=== PATIENT | male | born 1965 | race Caucasian/White ===

== ENCOUNTER 2017-09-29 18:49 | Emergency (ER) | payer OTHER, MEDICARE ==
[2017-09-29 19:03] VITALS: BP 130/80
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
[2017-09-29] MEDS ORDERED: KETOROLAC TROMETHAMINE INJ/PF 30 MG/1 ML SDV IM ONE (20:15)
--- NOTE | 2017-09-30 07:31 | EKG REPORT ---
SEVERITY:- BORDERLINE ECG - SINUS RHYTHM IVCD : Confirmed by: Sigifredo Ramirez MD 30-Sep-2017 07:30:56
== END 2017-09-29 20:42 | disposition home or self-care (01) ==
LOC: ER 18:49
DX: M54.2 Cervicalgia (principal); M62.838 Other muscle spasm; R07.89 Other chest pain; M25.50 Pain in unspecified joint; R20.2 Paresthesia of skin; V58.0XXA Driver of pick-up truck or van injured in noncollision transport accident in nontraffic accident, initial encounter
CPT/HCPCS: 93005; 99284; 96372; 71046; 70450; 72125; 93010; L0120; J1885

== ENCOUNTER 2017-10-23 19:35 | Emergency (ER) | payer OTHER, MEDICARE ==
--- NOTE | 2017-10-23 20:32 | ER Document Report ---
HPI - HPI Pain Level: 5 Notes: Patient is a 52-year-old male with a history of hypertension, diabetes, RSD (to his knees, R>L ankle), chronic back pain who presents to the ED complaining of right lower leg/ankle swelling and bruising without any injury or precipitating event that showed up this morning. Patient states that the only activity he did yesterday was get measured for prosthetics. Patient states that he is usually immobile and laid on his couch all day long yesterday without any exercise or ambulation. Patient states that this is his normal daily routine. He is followed at the [place] [facility]. He does not have any other smoking, hormone use, recent surgery/trauma, previous DVT/PE. Patient states that he also does have some calf discomfort associated. No other concerns or complaints at this time. He is eating and drinking without difficulties. He is urinating normally and having normal bowel movements. Denies any headache, fever, head injury, neck pain, changes in vision/speech/mentation/hearing, URI, sore throat , chest pain, palpitations, syncope, cough, shortness of breath, wheeze, dyspnea , abdominal pain, nausea/vomiting/diarrhea, urinary retention, dysuria, hematuria, loss of control of bowel or bladder, numbness/tingling, saddle anesthesia, muscle paralysis/weakness, or rash. - ROS Systems Reviewed and Negative: Yes All other systems reviewed and negative Past Medical History - Social History Smoking Status: Never Smoker Family History: Reviewed & Not Pertinent Renal/ Medical History: Denies: Hx Peritoneal Dialysis Musculoskeltal Medical History: Reports Hx Arthritis Past Surgical History: Reports: Hx Orthopedic Surgery - back, neck, shoulder, hip Vertical Provider Document - CONSTITUTIONAL Agree With Documented VS: Yes Notes: PHYSICAL EXAMINATION: GENERAL: Well-appearing, well-nourished and in no acute distress. LUNGS: Breath sounds clear to auscultation bilaterally and equal. No wheezes rales or rhonchi. HEART: Regular rate and rhythm without murmurs, rubs, gallops. Musculoskeletal: Rt ankle: + ecchymosis and mild swelling noted medial lower leg/ankle. + surgical scar noted medially where is his primary RSD pain is located. LROM to passive/active. Strength 5+/5. N/V intact distal. + tenderness to the medial ankle, normal for him per pt. No other bony tenderness of the foot. Achilles intact. Calves are symmetric otherwise. No warmth. + mild tenderness. Extremities: No cyanosis, clubbing, or edema b/l. Peripheral pulses 2+. Capillary refill less than 3 seconds. NEUROLOGICAL: Normal speech, limping gait with SPC. Normal sensory, motor exams PSYCH: Normal mood, normal affect. SKIN: Warm, Dry, normal turgor, no rashes or lesions noted. - INFECTION CONTROL TRAVEL OUTSIDE OF THE [place] IN LAST 30 DAYS: No Course - Re-evaluation Re-evalutation: 10/23/17 20:32 We will obtain a venous doppler. 10/23/17 23:18 Patient is an afebrile, well-hydrated, 52-year-old male who presents to the ED with right ankle pain/swelling unspecified. Vitals are acceptable. PE is otherwise unremarkable for any neurovascular compromise, obvious tendon/ ligament rupture, obvious fracture/dislocation, septic joint. X-ray was unremarkable for any acute pathology. Venous Doppler was obtained and unofficially negative at this time. Patient is able to ambulate and weight- bear. He has no significant tachycardia, tachypnea, or hypoxia. He is nontoxic -appearing. Patient does have complex regional pain syndrome to that ankle as well. No other labs or imaging warranted at this time based on H&P. Recommend conservative measures for symptoms. Recheck with your PCM in 3-5 days. Consider consult with orthopedics. Return to the ED with any worsening/ concerning symptoms otherwise as reviewed discharge. Patient is in agreement. - Vital Signs Vital signs: Temp Pulse Resp BP Pulse Ox 98.4 F 78 121/80 96 10/23/17 20:13 10/23/17 20:13 10/23/17 20:13 10/23/17 20:13 Discharge - Discharge Clinical Impression: Right ankle pain Qualifiers: Chronicity: acute Qualified Code(s): M25.571 - Pain in right ankle and joints of right foot Condition: Stable Disposition: HOME, SELF-CARE Additional Instructions: Rest, Ice, Compression, Elevation Use your cane to aide in ambulation Tylenol/ibuprofen as needed Light stretches daily Strength exercises as able Moist heat and massage may help F/u with your PCP in 3-5 days for a recheck Consider consult(s) with Orthopedics/physical therapy for ongoing/worsening symptoms Return to the ED with any worsening symptoms and/or development of fever, headache, chest pain, palpitations, syncope, shortness of breath, trouble breathing, abdominal pain, n/v/d, muscle weakness/paralysis, numbness/tingling, swelling, redness, or other worsening symptoms that are concerning to you. Prescriptions: Diclofenac Sodium [Voltaren] 4 gm TP QID PRN #100 gel..gm. PRN Reason: Referrals: ENZO BETHEA PA [Primary Care Provider] - Follow up in 3-5 days [facility] [Provider Group] - Follow up as needed
[2017-10-23] MEDS ORDERED: MORPHINE SULFATE IR 15 MG TABLET PO ONE (20:35)
--- NOTE | 2017-10-23 23:12 | RADIOLOGY REPORT (SQ) ---
EXAM DESCRIPTION: ANKLE RIGHT COMPLETE COMPLETED DATE/TIME: 10/23/2017 11:00 pm REASON FOR STUDY: pain/swelling COMPARISON: None. NUMBER OF VIEWS: Three views. TECHNIQUE: AP, lateral, and oblique radiographic images acquired of the right ankle. LIMITATIONS: None. FINDINGS: MINERALIZATION: Normal. BONES: No acute fracture or dislocation. No worrisome bone lesions. 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 SOFT TISSUES: No soft tissue swelling. No foreign body. OTHER: No other significant finding. IMPRESSION: DEGENERATIVE CHANGE. NO RADIOGRAPHIC EVIDENCE OF ACUTE INJURY. TECHNICAL DOCUMENTATION: JOB ID: [id number] [employer]- All Rights Reserved Reading location - IP/workstation name: [email or web address]
[2017-10-24 00:40] VITALS: BP 119/75
--- NOTE | 2017-10-24 13:10 | XCELERA REPORT ---
[address] [address] Lower Extremity Venous Evaluation Name: DU VELASQUEZ JR Age: 52 yrs Gender: Male : 1965 Patient Status: Emergency Patient Location: ER Study Date: 10/23/2017 09:51 PM Procedure: Color flow and duplex imaging of the veins of the right lower extremity as well as the left Common Femoral vein. Reason For Study: Rt LE swelling, ecchymosis, pain, no trauma Ordering Physician: CARI PIZARRO PA-C Performed By: Michell Roman Right Sided Venous Evaluation Normal vessel filling wall to wall, compression and augmentation as well as Colour flow down to the infrageniculate veins. Left Sided Venous Evaluation The left common femoral vein is fully compressible. Spontaneous and phasic flow is present in the left common femoral vein. Interpretation Summary No duplex evidence of DVT or obstruction in the right lower extremity nor in the left Common Femoral vein. : CARI PIZARRO PA-C > Shashank Gotti
== END 2017-10-24 00:39 | disposition home or self-care (01) ==
LOC: ER 19:35
DX: M25.571 Pain in right ankle and joints of right foot (principal); I10 Essential (primary) hypertension; E11.9 Type 2 diabetes mellitus without complications; G89.29 Other chronic pain
CPT/HCPCS: 93971; 99284

== ENCOUNTER 2019-01-30 15:06 | Emergency (ER) | payer OTHER, MEDICARE ==
--- NOTE | 2019-01-30 16:03 | ER Document Report ---
ED Medical Screen (RME) - General Chief Complaint: Rib Pain Stated Complaint: RIB PAIN Time Seen by Provider: 01/30/19 15:54 Primary Care Provider: ENZO BETHEA PA [Primary Care Provider] - Follow up as needed Mode of Arrival: Wheelchair Information source: Patient Notes: 54-year-old male presented to ED for complaint of right rib pain since Thursday. He states he was doing PT doing pulling and stretching exercises when he had pain in his right ribs and difficulty breathing. He states he did not go to the doctor or to the hospital or anyone to get it checked out. He states he thought he could just work it out himself. He went back to the PT on Thursday and was told that he needed to go to the emergency room. He states he did not go on Thursday but he did come in today. He is alert oriented respirations regular and unlabored speaking in full sentences walks with a even steady gait. He states he has had neck and back surgery multiple other joint problems as well as arthritis. He had multiple orthopedic surgeries. He has been on pain management since 1991 for his low back and is now on for his neck as well. He states he has had a appendectomy. He has throat problems due to his neck surgery. He states he does not smoke drink or use any drugs. He states he does not take anything like ibuprofen or naproxen or aspirin. I have greeted and performed a rapid initial assessment of this patient. A comprehensive ED assessment and evaluation of the patient, analysis of test results and completion of medical decision making process will be conducted by an additional ED providers. TRAVEL OUTSIDE OF THE [place] IN LAST 30 DAYS: No - Related Data Allergies/Adverse Reactions: Penicillins Allergy (Verified 09/29/17 18:56) tomato Allergy (Verified 09/29/17 18:56) Past Medical History - Social History Chew tobacco use (# tins/day): No Endocrine Medical History: Reports: Hx Diabetes Mellitus Type 2 Renal/ Medical History: Denies: Hx Peritoneal Dialysis Musculoskeltal Medical History: Reports Hx Arthritis Past Surgical History: Reports: Hx Orthopedic Surgery - back, neck, shoulder, hip Physical Exam - Vital signs Vitals: Temp Pulse Resp BP Pulse Ox 98.0 F 74 16 137/88 H 98 01/30/19 15:31 01/30/19 15:31 01/30/19 15:31 01/30/19 15:31 01/30/19 15:31 Course - Vital Signs Vital signs: Temp Pulse Resp BP Pulse Ox 98.0 F 74 16 137/88 H 98 01/30/19 15:31 01/30/19 15:31 01/30/19 15:31 01/30/19 15:31 01/30/19 15:31 Doctor's Discharge - Discharge Referrals: ENZO BETHEA PA [Primary Care Provider] - Follow up as needed
--- NOTE | 2019-01-30 16:48 | RADIOLOGY REPORT (SQ) ---
EXAM DESCRIPTION: RIBS LEFT W/PA CHEST COMPLETED DATE/TIME: 01/30/2019 4:27 pm REASON FOR STUDY: pain in ribs since pt on Thursday pain management COMPARISON: Chest x-ray 09/29/2017. TECHNIQUE: Frontal view of the chest and additional views of the left ribs acquired. NUMBER OF VIEWS: Four view. LIMITATIONS: None. FINDINGS: FRONTAL CXR: No pneumothorax. No pleural effusion. No atelectasis or infiltrates. RIBS: No displaced left rib fractures. IMPRESSION: NO PNEUMOTHORAX. NO DISPLACED LEFT RIB FRACTURES. COMMENT: SITE OF TRAUMA/COMPLAINT MARKED/STAMP COMPLETED: NO. TECHNICAL DOCUMENTATION: JOB ID: [id number] 2010 [employer]- All Rights Reserved Reading location - IP/workstation name: [email or web address]
--- NOTE | 2019-01-30 17:41 | ER Document Report ---
HPI - HPI Time Seen by Provider: 01/30/19 15:54 Pain Level: 4 Context: Patient is a 54-year-old male with a history of bilateral arm tremors, chronic low back pain, chronic neck pain, and muscle weakness who presents to the emergency department with a chief complaint of left rib pain. Patient states that last Thursday he was at physical therapy when the therapist stretched his left arm upward and pushed on his ribs. Patient reports that at that time he felt discomfort in the left rib area. Patient reports that movement, deep breath and laying on the left side makes the pain worse. Patient states he did go to physical therapy on Thursday in which they used ice and the TENS machine. Patient reports that he tends machine did help with his pain. Patient does take morphine 30 mg every 12 hours as well as morphine 45 mg every 4 hours for pain. Patient was concerned about possible rib fracture. Patient denies coughing up blood. Patient reports he does go to physical therapy due to his neck surgery back in July which was a C3-C4 fusion. - EENT EENT: DENIES: Sore Throat, Ear Pain, Eye problems - NEURO Neurology: DENIES: Headache, Weakness, Vision blurred, Dizzinesss / Vertigo - CARDIOVASCULAR Cardiovascular: DENIES: Chest pain - RESPIRATORY Respiratory: DENIES: Trouble Breathing, Coughing - GASTROINTESTINAL Gastrointestinal: DENIES: Abdominal Pain, Black / Bloody Stools - URINARY Urinary: DENIES: Dysuria, Urgency, Frequency - REPRODUCTIVE Reproductive: DENIES: :, Postmenopausal, Abnormal bleeding / discharge - MUSCULOSKELETAL Musculoskeletal: REPORTS: Extremity pain - Left Rib Past Medical History - General Information source: Patient - Social History Smoking Status: Former Smoker Chew tobacco use (# tins/day): No Frequency of alcohol use: None Drug Abuse: None Lives with: Spouse/Significant other Family History: Reviewed & Not Pertinent Patient has suicidal ideation: No Patient has homicidal ideation: No - Past Medical History Cardiac Medical History: Reports: None Pulmonary Medical History: Reports: None EENT Medical History: Reports: None Neurological Medical History: Reports: None Endocrine Medical History: Reports: Hx Diabetes Mellitus Type 2 Renal/ Medical History: Reports: None. Denies: Hx Peritoneal Dialysis Malignancy Medical History: Reports None GI Medical History: Reports: None Musculoskeletal Medical History: Reports Hx Arthritis Skin Medical History: Reports None Psychiatric Medical History: Reports: None Traumatic Medical History: Reports: None Infectious Medical History: Reports: None Past Surgical History: Reports: Hx Orthopedic Surgery - back, neck, shoulder, hip Vertical Provider Document - CONSTITUTIONAL Agree With Documented VS: Yes Exam Limitations: No Limitations General Appearance: No Apparent Distress - INFECTION CONTROL TRAVEL OUTSIDE OF THE [place] IN LAST 30 DAYS: No - HEENT HEENT: Atraumatic, Normocephalic, PERRLA - NECK Neck: Normal Inspection - RESPIRATORY Respiratory: Breath Sounds Normal, No Respiratory Distress Notes: Patient has tenderness with palpation to the to the posterior and lateral lower ribs. There is no ecchymosis, erythema, or edema noted. There is no crepitus or subcutaneous emphysema. - CARDIOVASCULAR Cardiovascular: Regular Rate, Regular Rhythm - GI/ABDOMEN Gastrointestinal: Abdomen Soft, Abdomen Non-Tender - BACK Back: Normal Inspection Notes: There is no obvious ecchymosis, erythema, edema to the back. - NEURO Level of Consciousness: Awake, Alert, Appropriate - DERM Integumentary: Warm, Dry, No Rash Course - Re-evaluation Re-evalutation: 01/30/19 17:45 Upon evaluation patient no acute distress. Patient states he was concerned that he may have a broken rib. X-rays were negative for any acute abnormality or rib fractures. Will prescribe patient a muscle relaxer as he is already on chronic pain management. Patient in agreement with this plan. I did inform the patient to continue use his TENS machine at home and cool compresses as this does seem to help with his discomfort. - Vital Signs Vital signs: Temp Pulse Resp BP Pulse Ox 98.0 F 74 16 137/88 H 98 01/30/19 15:31 01/30/19 15:31 01/30/19 15:31 01/30/19 15:31 01/30/19 15:31 - Diagnostic Test Radiology reviewed: Reports reviewed Radiology results interpreted by me: 01/30/19 17:50 Ribs w/Chest X-Ray 01/30/19 16:00 IMPRESSION: NO PNEUMOTHORAX. NO DISPLACED LEFT RIB FRACTURES. Discharge - Discharge Clinical Impression: Rib pain on left side, Muscle strain Condition: Stable Disposition: HOME, SELF-CARE Additional Instructions: Today you are seen in the emergency department for left rib pain. Your x-ray was negative for any acute abnormality such as a rib fracture. Your symptoms are consistent with a muscle strain. Please continue to use your TENS machine at home as well as cool compresses as this does seem to help with your discomfort. I am prescribing you a muscle relaxer, this is to be used in combination with your morphine. Would also be helpful to start an anti- inflammatory. Please check your medication list at home as you may already be on an anti-inflammatory. Muscle Strain You have strained a muscle -- torn the fibers within the muscle. This often occurs with strenuous exertion, or during an injury that suddenly stretches the muscle. The seriousness of a strain varies. Some strains heal within days, others cause problems for months. X-rays cannot show a muscle strain. X-rays are taken only if symptoms suggest that a fracture could be present. The usual treatment of a muscle strain is rest and ice packs. Sometimes, a sling, splint, or crutches may be necessary to rest the muscle. The muscle can be used again once pain subsides. Severe strains require a special exercise and stretching program to prevent permanent stiffness and disability. Your doctor will advise you if this will be necessary. Call the doctor immediately if pain or swelling becomes severe, or if numbness or discoloration develop. Muscle Relaxers Muscle relaxing medications are usually prescribed for acute muscle spasm or injury to the neck and back. They are often combined with antiinflammatory pain medication for increased relief. You may stop the muscle relaxer when the pain and stiffness have improved. Start the medication again if spasms recur. Muscle relaxers may cause drowsiness, especially with the first dose. Do not operate machinery or drive while under the effects of the medication. Most muscle relaxers last up to 24 hours. Do not combine the medication with alcohol. Prescriptions: Methocarbamol [Robaxin 500 mg Tablet] 1,000 mg PO TID #15 tablet Referrals: ENZO BETHEA PA [Primary Care Provider] - Follow up as needed
[2019-01-30] MEDS ORDERED: METHOCARBAMOL 500 MG TABLET PO ONE (17:48)
[2019-01-30 18:05] VITALS: BP 117/81
== END 2019-01-30 18:05 | disposition home or self-care (01) ==
LOC: ER 15:06
DX: R07.81 Pleurodynia (principal); T14.8XXA Other injury of unspecified body region, initial encounter; X58.XXXA Exposure to other specified factors, initial encounter; G89.29 Other chronic pain; M54.5 Low back pain; Z98.1 Arthrodesis status
CPT/HCPCS: 99283

== ENCOUNTER 2019-02-20 02:57 | Emergency (ER) | payer OTHER, MEDICARE ==
[2019-02-20] MEDS ORDERED: AZITHROMYCIN 1 GM SUSP PACKET PO ONE (04:03)
[2019-02-20] MEDS ORDERED: CIPROFLOXACIN HCL 500 MG TABLET PO ONE (04:03)
[2019-02-20] MEDS ORDERED: DOXYCYCLINE HYCLATE 100 MG TABLET PO ONE (04:03)
[2019-02-20] MEDS ORDERED: HYDROCODONE/ACETAMINOPHEN 10-325 MG TABLET PO ONE (04:03)
[2019-02-20] MEDS ORDERED: FENTANYL CITRATE INJ/PF 100 MCG/2 ML AMPUL IM ONE (04:17)
[2019-02-20] MEDS ORDERED: GABAPENTIN 300 MG CAPSULE PO ONE (04:17)
--- NOTE | 2019-02-20 04:20 | ER Document Report ---
ED ENT - General Chief Complaint: Ear Pain Stated Complaint: EARACHE Time Seen by Provider: 02/20/19 03:54 Primary Care Provider: ENZO BETHEA PA [Primary Care Provider] - Follow up as needed Mode of Arrival: Ambulatory Information source: Patient Notes: Chief complaint: Left facial pain History of complain:( obtained from----patient) 54 years old male presents today with left facial pain starting from the 10th left temporomandibular joint radiating anteriorly over the frontal maxillary and jaw region. Going on for the last few days. Sharp pain shooting pain comes on on and off. Unexpectedly. He is on morphine in spite of that the pain comes on. Onset: As above Duration: Last few days Severity: Moderate to severe Quality: Sharp stabbing pain Context: Possible trigeminal neuralgia Exacerbating factor and relieving factors: None REVIEW OF SYSTEMS: CONSTITUTIONAL : Denies fever, chills, or sweats. Denies recent illness. EENT: Denies eye, ear, throat, or mouth pain or symptoms. Denies nasal or sinus congestion or discharge. Denies throat, tongue, or mouth swelling or difficulty swallowing. CARDIOVASCULAR: Denies chest pain. Denies palpitations or racing or irregular heart beat. Denies ankle edema. RESPIRATORY: Denies cough, cold, or chest congestion. Denies shortness of breath, difficulty breathing, or wheezing. GASTROINTESTINAL: Denies distention. Denies nausea, vomiting, or diarrhea. Denies blood in vomitus, stools, or per rectum. Denies black, tarry stools. Denies constipation. GENITOURINARY: Denies difficulty urinating, painful urination, burning, frequency, blood in urine, or discharge. FEMALE GENITOURINARY: Denies vaginal bleeding, heavy or abnormal periods, irregular periods. Denies vaginal discharge or odor. MUSCULOSKELETAL: Denies back or neck pain or stiffness. Denies joint pain or swelling. SKIN: Denies rash, lesions or sores. HEMATOLOGIC : Denies easy bruising or bleeding. LYMPHATIC: Denies swollen, enlarged glands. NEUROLOGICAL: Denies confusion or altered mental status. Denies passing out or loss of consciousness. Denies dizziness or lightheadedness. Denies headache. Denies weakness or paralysis or loss of use of either side. Denies problems with gait or speech. Denies sensory loss, numbness, or tingling. Denies seizures. PSYCHIATRIC: Denies anxiety or stress. Denies depression, suicidal ideation, or homicidal ideation. ALL OTHER SYSTEMS REVIEWED AND NEGATIVE. PHYSICAL EXAMINATION: GENERAL: Well-appearing, well-nourished and in no acute distress. HEAD: Atraumatic, normocephalic. EYES: Pupils equal round and reactive to light, extraocular movements intact, conjunctiva are normal. ENT: Tenderness over the left frontal, maxillary, mandibular region noted. Nares patent, oropharynx clear without exudates. Moist mucous membranes. NECK: Normal range of motion, supple without lymphadenopathy LUNGS: Breath sounds clear to auscultation bilaterally and equal. No wheezes rales or rhonchi. HEART: Regular rate and rhythm without murmurs PSYCH: Normal mood, normal affect. SKIN: Warm, Dry, normal turgor, no rashes or lesions noted. Dictation was performed using [employer] voice recognition software TRAVEL OUTSIDE OF THE [place] IN LAST 30 DAYS: No - HPI Notes: Dictated - Related Data Allergies/Adverse Reactions: Penicillins Allergy (Verified 09/29/17 18:56) tomato Allergy (Verified 09/29/17 18:56) Past Medical History - Social History Smoking Status: Never Smoker Chew tobacco use (# tins/day): No Frequency of alcohol use: None Drug Abuse: None Lives with: Family Family History: Reviewed & Not Pertinent Patient has suicidal ideation: No Patient has homicidal ideation: No - Past Medical History Cardiac Medical History: Reports: Hx Hypercholesterolemia, Hx Hypertension Neurological Medical History: Reports: Hx Seizures Endocrine Medical History: Reports: Hx Diabetes Mellitus Type 2 Renal/ Medical History: Denies: Hx Peritoneal Dialysis Musculoskeletal Medical History: Reports Hx Arthritis Past Surgical History: Reports: Hx Orthopedic Surgery - back, neck, shoulder, hip Review of Systems - Review of Systems Notes: Dictated Physical Exam - Vital signs Vitals: Temp Pulse Resp BP Pulse Ox 98.2 F 89 16 154/93 H 97 02/20/19 03:12 02/20/19 03:02/20/19 03:02/20/19 03:02/20/19 03:12 - Notes Notes: Dictated Course - Vital Signs Vital signs: Temp Pulse Resp BP Pulse Ox 98.2 F 89 16 154/93 H 97 02/20/19 03:12 02/20/19 03:12 02/20/19 03:12 02/20/19 03:12 02/20/19 03:12 Discharge - Discharge Clinical Impression: Trigeminal neuralgia of left side of face Condition: Fair Disposition: HOME, SELF-CARE Instructions: Trigeminal Neuralgia ([facility]) Prescriptions: Gabapentin Enacarbil [Horizant] 300 mg PO TID #30 tab.er.24h Referrals: ENZO BETHEA PA [Primary Care Provider] - Follow up as needed
[2019-02-20 05:01] VITALS: BP 141/96
--- NOTE | 2019-02-20 10:23 | EKG REPORT ---
SEVERITY:- OTHERWISE NORMAL ECG - SINUS RHYTHM BORDERLINE LEFT AXIS DEVIATION : Confirmed by: Aicha Carey MD 20-Feb-2019 10:22:40
== END 2019-02-20 04:59 | disposition home or self-care (01) ==
LOC: ER 02:57
DX: G50.0 Trigeminal neuralgia (principal); R68.84 Jaw pain; I10 Essential (primary) hypertension; E11.9 Type 2 diabetes mellitus without complications
CPT/HCPCS: 93005; 99283; 96374; 93010; J3010

== ENCOUNTER 2020-02-06 09:44 | Inpatient (IN) | payer OTHER, MEDICARE ==
[2020-02-06] MEDS ORDERED: ONDANSETRON HCL INJ/PF 4 MG/2 ML SDV IV ONE (10:14)
[2020-02-06] MEDS ORDERED: NORMAL SALINE 1000 ML 1,000 ML IV ONE ×3 (10:14→12:47)
--- NOTE | 2020-02-06 10:25 | RADIOLOGY REPORT (SQ) ---
EXAM DESCRIPTION: CHEST SINGLE VIEW IMAGES COMPLETED DATE/TIME: 02/06/2020 10:14 am REASON FOR STUDY: bed1 sepsis alert COMPARISON: 09/29/2017 EXAM PARAMETERS: NUMBER OF VIEWS: One view. TECHNIQUE: Single frontal radiographic view of the chest acquired. RADIATION DOSE: NA LIMITATIONS: None. FINDINGS: LUNGS AND PLEURA: No focal consolidation, pleural effusion or pneumothorax. MEDIASTINUM AND HILAR STRUCTURES: No masses. Contour normal. HEART AND VASCULAR STRUCTURES: Heart normal in size. Normal vasculature. BONES: No acute findings. HARDWARE: None in the chest. Partially visualized cervical fusion hardware. OTHER: No other significant finding. IMPRESSION: No focal airspace disease or other evidence of acute intrathoracic process. TECHNICAL DOCUMENTATION: JOB ID: [id number] 2010 [employer]- All Rights Reserved Reading location - IP/workstation name: [email or web address]
[2020-02-06 10:27] LABS: INTERNATIONAL RATION (INR) 1.66; PROTHROMBIN TIME 19.7 SEC (11.4-15.4)
[2020-02-06 10:28] LABS: VENOUS BLOOD BASE EXCESS 0.5 mmol/L; VENOUS BLOOD HCO3 26.3 mmol/L (20-32); VENOUS BLOOD PH 7.37 (7.30-7.42)
[2020-02-06 10:31] LABS: ABSOLUTE LYMPHOCYTES (AUTO) 0.8 10^3/uL (0.5-4.7); ABSOLUTE MONOCYTES (AUTO) 0.8 10^3/uL (0.1-1.4); ABSOLUTE NEUT (AUTO) 3.9 10^3/uL (1.7-8.2); BASOPHILS % (AUTO) 0.2 % (0-2); HEMATOCRIT 34.8 % (37.9-51.0); HEMOGLOBIN 11.9 g/dL (13.5-17.0); LYMPHOCYTES % (AUTO) 14.1 % (13-45); MEAN CORPUSCULAR HEMOGLOBIN 28.7 pg (27.0-33.4); MEAN CORPUSCULAR HGB CONC 34.2 g/dL (32.0-36.0); MEAN CORPUSCULAR VOLUME 84 fl (80-97); MONOCYTES % (AUTO) 13.7 % (3-13); PLATELET COUNT 283 10^3/uL (150-450); RED BLOOD COUNT 4.15 10^6/uL (4.35-5.55); RED CELL DISTRIBUTION WIDTH 14.8 % (11.5-14.0); TOTAL CELLS COUNTED % (AUTO) 100 %; WHITE BLOOD COUNT 5.5 10^3/uL (4.0-10.5)
[2020-02-06 10:52] LABS: ALBUMIN 3.4 g/dL (3.5-5.0); ALKALINE PHOSPHATASE 61 U/L (38-126); ANION GAP 19 (5-19); ASPARTATE AMINO TRANSFERASE 117 U/L (17-59); BILIRUBIN,DIRECT 2.2 mg/dL (0.0-0.4); BILIRUBIN,TOTAL 3.2 mg/dL (0.2-1.3); BLOOD UREA NITROGEN 61 mg/dL (7-20); CALCIUM 8.9 mg/dL (8.4-10.2); CARBON DIOXIDE 26 mmol/L (22-30); CHLORIDE 90 mmol/L (98-107); GLUCOSE 151 mg/dL (75-110); POTASSIUM 3.8 mmol/L (3.6-5.0); TOTAL PROTEIN 5.8 g/dL (6.3-8.2)
--- NOTE | 2020-02-06 11:13 | RADIOLOGY REPORT (SQ) ---
EXAM DESCRIPTION: CT ABD/PELVIS NO ORAL OR IV IMAGES COMPLETED DATE/TIME: 02/06/2020 10:51 am REASON FOR STUDY: recent aurelia/pain/vomit COMPARISON: 01/06/2020 TECHNIQUE: CT scan of the abdomen and pelvis performed without intravenous or oral contrast. Images reviewed with lung, soft tissue, and bone windows. Reconstructed coronal and sagittal MPR images revi ewed. All images stored on PACS. All CT scanners at this facility use dose modulation, iterative reconstruction, and/or weight based d osing when appropriate to reduce radiation dose to as low as reasonably achievable (ALARA). [facility]: Dose Right [facility]: CareDose [facility]: Dose Right [facility]: Teradose 4D [facility]: [employer] RADIATION DOSE: CT Rad equipment meets quality standard of care and radiation dose reduction techniq ues were employed. CTDIvol: 16.6 mGy. DLP: 1040 mGy-cm.mGy. LIMITATIONS: None. FINDINGS: LOWER CHEST: Several calcified granulomas in the right lower lobe. Areas of linear basila r subsegmental atelectasis. No developing lesions. Distal esophagus mildly distended with fluid. NON-CONTRASTED LIVER, SPLEEN, ADRENALS: Evaluation limited by lack of IV contrast. No identified sign ificant masses. PANCREAS: No masses. No peripancreatic inflammatory changes. GALLBLADDER: Now surgically absent. Minimal fluid in the gallbladder fossa. RIGHT KIDNEY AND URETER: No solid masses. No significant calcification. No hydronephrosis or hydroure ter. LEFT KIDNEY AND URETER: No solid masses. No significant calcification. No hydronephrosis or hydrouret er. AORTA AND RETROPERITONEUM: No aneurysm. No retroperitoneal masses or adenopathy. BOWEL AND PERITONEAL CAVITY: The stomach is markedly distended with fluid. Duodenum and proximal jej unum also considerably distended. Difficult to define a discrete transition point but the mid and di stal small bowel look generally decompressed. Findings are consistent with at least partial small javier wel obstruction. Given the degree of gastric and proximal small bowel distention, this may be relati vely high-grade. Suspect obstruction point in the relatively proximal small bowel, left abdomen. Th ere is mild ascites with perihepatic fluid, trace pericolic gutter and pelvic fluid, relatively simpl e in appearance. Mild free air in the abdomen, presumably due to the recent surgery. APPENDIX: Not visualized. PELVIS, BLADDER, AND ABDOMINAL WALL:Trace free fluid. Otoole catheter decompresses the bladder. BONES: Osteopenia. Multilevel lumbar postoperative changes with instrumentation. OTHER: No other significant finding. IMPRESSION: 1. Patient is now postoperative, status post recent cholecystectomy. This likely explains minimal fr ee air in the abdomen and mild ascites. 2. There is considerable fluid distention of the distal esophagus, stomach and proximal small bowel h owever. Although ileus is in the differential, appearance is highly concerning for proximal true obs truction. TECHNICAL DOCUMENTATION: JOB ID: [id number] Quality ID # [id number]: Final reports with documentation of one or more dose reduction techniques (e.g., Au tomated exposure control, adjustment of the mA and/or kV according to patient size, use of iterative reconstruction technique) 2010 [email or web address]- All Rights Reserved Reading location - IP/workstation name: [email or web address]
[2020-02-06] MEDS ORDERED: NORMAL SALINE 250 ML IV PRN ×2 (11:36)
[2020-02-06 11:46] LABS: ABSOLUTE LYMPHOCYTES (AUTO) 1.1 10^3/uL (0.5-4.7); ABSOLUTE MONOCYTES (AUTO) 0.8 10^3/uL (0.1-1.4); BASOPHILS % (AUTO) 0.4 % (0-2); HEMATOCRIT 33.8 % (37.9-51.0); HEMOGLOBIN 11.7 g/dL (13.5-17.0); LYMPHOCYTES % (AUTO) 19.1 % (13-45); MEAN CORPUSCULAR HEMOGLOBIN 28.9 pg (27.0-33.4); MEAN CORPUSCULAR HGB CONC 34.7 g/dL (32.0-36.0); MEAN CORPUSCULAR VOLUME 83 fl (80-97); MONOCYTES % (AUTO) 12.8 % (3-13); PLATELET COUNT 267 10^3/uL (150-450); RED BLOOD COUNT 4.06 10^6/uL (4.35-5.55); RED CELL DISTRIBUTION WIDTH 14.9 % (11.5-14.0); SEGMENTED NEUTROPHILS % (AUTO) 67.7 % (42-78); TOTAL CELLS COUNTED % (AUTO) 100 %
[2020-02-06] MEDS ORDERED: LIDOCAINE 2% VISCOUS SOLN 15 ML UDCUP ONE (12:05)
[2020-02-06] MEDS ORDERED: METOCLOPRAMIDE HCL INJ/PF 10 MG/2 ML SDV IV ONE (12:05)
[2020-02-06] MEDS ORDERED: LIDOCAINE 2% VISCOUS SOLN 15 ML UDCUP PO ONE (12:05)
--- NOTE | 2020-02-06 12:10 | ER Document Report ---
ED General - General Chief Complaint: Abdominal Pain Stated Complaint: WEAKNESS Time Seen by Provider: 02/06/20 10:11 Primary Care Provider: GIANCARLO CLAUDIO MD [Primary Care Provider] - Follow up as needed Information source: Patient TRAVEL OUTSIDE OF THE [place] IN LAST 30 DAYS: No - HPI Notes: Patient presents complaint of severe abdominal pain. States that he had a cholecystectomy approximately 1 week ago at an outside facility. Since that time he has had progressive distention of his abdomen with increasing pain and vomiting. The pain is constant and severe. Radiates throughout his abdomen. Is worse with movement better with rest. He is also decreased appetite. No known fevers. He has had no problems with urine or stool. No chest pain or shortness of breath. - Related Data Allergies/Adverse Reactions: Penicillins Allergy (Verified 02/06/20 11:59) tomato Allergy (Verified 02/06/20 11:59) Past Medical History - General Information source: Patient - Social History Smoking Status: Current Every Day Smoker Frequency of alcohol use: None Drug Abuse: None Family History: Reviewed & Not Pertinent - Past Medical History Cardiac Medical History: Reports: Hx Hypercholesterolemia, Hx Hypertension Neurological Medical History: Reports: Hx Seizures Endocrine Medical History: Reports: Hx Diabetes Mellitus Type 2 Renal/ Medical History: Denies: Hx Peritoneal Dialysis Musculoskeletal Medical History: Reports Hx Arthritis Past Surgical History: Reports: Hx Orthopedic Surgery - back, neck, shoulder, hip Review of Systems - Review of Systems Constitutional: Malaise, Weakness Cardiovascular: denies: Chest pain, Palpitations Respiratory: denies: Cough, Short of breath -: Yes All other systems reviewed and negative Physical Exam - Vital signs Vitals: BP 109/68 02/06/20 09:46 Interpretation: Hypotensive, Tachycardic - General General appearance: Alert, Anxious In distress: Moderate - HEENT Head: Normocephalic, Atraumatic Eyes: Normal Pupils: PERRL - Respiratory Respiratory status: No respiratory distress Chest status: Nontender Breath sounds: Normal Chest palpation: Normal - Cardiovascular Rhythm: Tachycardia Heart sounds: Normal auscultation Murmur: No - Abdominal Inspection: Other - Healing incisions without signs of acute infection Distension: Distended Tenderness: Tender - Diffuse - Back Back: Normal, Nontender - Extremities General upper extremity: Normal inspection, Nontender, Normal color, Normal ROM, Normal temperature General lower extremity: Normal inspection, Nontender, Normal color, Normal ROM, Normal temperature. No: Sonia's sign - Neurological Neuro grossly intact: Yes Cognition: Normal Orientation: AAOx4 Jeanie Coma Scale Eye Opening: Spontaneous Jeanie Coma Scale Verbal: Oriented Jeanie Coma Scale Motor: Obeys Commands [place] Coma Scale Total: 15 Speech: Normal Motor strength normal: LUE, RUE, LLE, RLE Sensory: Normal - Psychological Associated symptoms: Normal affect, Normal mood - Skin Skin Temperature: Warm Skin Moisture: Dry Skin Color: Normal Course - Re-evaluation Re-evalutation: 02/06/20 12:10 Patient is approximately 1 week postop from a cholecystectomy. He presents with hypotension tachycardia and a severely tender distended abdomen. CT scan shows ileus versus true obstruction. Multiple attempts at an NG tube were unsuccessfu l but patient has vomited approximately 2 L of coffee-ground emesis. After 3 L patient was still hypotensive so there was concerns the patient may be anemic even though the initial CBC was normal. Repeat CBC however showed the patient to have persistent normal hemoglobin and hematocrit therefore the blood was not given. Patient does appear to be significantly fluid behind and is currently on liters 4 and 5. His urine output has been minimal for the last hour and a half. Patient's EKG has some nonspecific changes but he does not have any significant chest pain and it would seem unlikely that he be having cardiac ischemia at the same time as a significant intra-abdominal obstruction/ileus. Patient's blood pressure is better at this time heart rate has been trending down but is still tachycardic. O2 saturations have been good. - Vital Signs Vital signs: Temp Pulse Resp BP Pulse Ox 28 H 138/99 H 93 02/06/20 11:55 02/06/20 11:55 02/06/20 11:55 - Laboratory Result Diagrams: 02/06/20 11:30 02/06/20 09:55 Laboratory results interpreted by me: 02/06/20 02/06/20 02/06/20 09:55 09:55 09:55 RBC 4.15 L Hgb 11.9 L Hct 34.8 L RDW 14.8 H [place] % (Auto) 13.7 H PT 19.7 H Sodium 135.2 L Chloride 90 L BUN 61 H Creatinine 2.64 H Est GFR ( Amer) 30 L Est GFR (MDRD) Non-Af 25 L Glucose 151 H Lactic Acid Total Bilirubin 3.2 H Direct Bilirubin 2.2 H AST 117 H Total Protein 5.8 L Albumin 3.4 L Crossmatch 02/06/20 02/06/20 02/06/20 09:55 10:18 11:30 RBC 4.06 L Hgb 11.7 L Hct 33.8 L RDW 14.9 H [place] % (Auto) PT Sodium Chloride BUN Creatinine Est GFR ( Amer) Est GFR (MDRD) Non-Af Glucose Lactic Acid 6.4 H Total Bilirubin Direct Bilirubin AST Total Protein Albumin Crossmatch See Detail - Diagnostic Test Radiology reviewed: Image reviewed, Reports reviewed - EKG Interpretation by Me EKG shows normal: Sinus rhythm Rate: Tachycardia Rhythm: NSR - 153 When compared to previous EKG there are: Changes noted Critical Care Note - Critical Care Note Total time excluding time spent on procedures (mins): 80 Comments: Approximately 80 minutes of critical care time were spent managing this patient with hypotension, tachycardia, hypovolemic shock secondary to bowel obstruction from surgical complication. This time is spent in discussions multiple consultants. It is spent reviewing imaging and laboratory values. It was spent reviewing old records. It was spent during multiple reassessments. Discharge - Discharge Clinical Impression: Small bowel obstruction, Hypovolemic shock Condition: Critical Disposition: ADMITTED INPATIENT Admitting Provider: Hal (Mar[employer] Equipment Sales Engineer) Unit Admitted: ICU Referrals: GIANCARLO CLAUDIO MD [Primary Care Provider] - Follow up as needed
[2020-02-06 12:15] LABS: AMORPHOUS SEDIMENT,URINE TRACE /HPF; APPEARANCE,URINE TURBID; BILIRUBIN,URINE SMALL (NEGATIVE); COLOR,URINE AMBER; GLUCOSE, URINE NEGATIVE (NEGATIVE); KETONES,URINE TRACE mg/dL (NEGATIVE); PROTEIN,URINE >=500 mg/dL (NEGATIVE); URINE SPECIFIC GRAVITY 1.026
[2020-02-06] MEDS: METOCLOPRAMIDE HCL INJ/PF 10 MG/2 ML SDV ONE ×2 (12:26→12:51)
--- NOTE | 2020-02-06 12:29 | EKG REPORT ---
SEVERITY:- ABNORMAL ECG - SINUS TACHYCARDIA ATRIAL PREMATURE COMPLEXES BORDERLINE ST ELEVATION, INFERIOR LEADS : Confirmed by: Sigifredo Ramirez MD 06-Feb-2020 12:29:08
[2020-02-06] MEDS ORDERED: PHARMACY COMMUNICATION ORDER MC NR (12:30)
--- NOTE | 2020-02-06 12:47 | CRITICAL CARE ADMISSION REPORT ---
HPI Date:: 02/06/20 Time:: 12:00 Reason for ICU Reason:: ST, lactic acidosis. Admission Date/Time & PCP: Admission Date/Time: Primary Care Provider: GIANCARLO CLAUDIO MD HPI: This patient is a 55 yo man who underwent a lap aurelia at [facility] about a week ago. He felt well for about a day then has been anorexic with some abd pain and not eating or drinking much since. He comes to the ED at [facility] with severe dehydration, lactic acid of 6, renal dysfunction and a CT that is suggestive of a high grade duodenal SBO with a very distended stomach. He also has sinus tachycardia to 150. History obtained from:: The patient and Dr. Rick - Diagnosis/Plan (1) Dehydration Is this a current diagnosis for this admission?: Yes Plan: This is severe with BISMARK and oliguria. 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 (2) Sinus tachycardia Is this a current diagnosis for this admission?: Yes Plan: After he is hydrated, will treat this with small doses of beta-blockade. (3) Hypovolemic shock Is this a current diagnosis for this admission?: Yes Plan: Improving with hydration. (4) Small bowel obstruction Is this a current diagnosis for this admission?: Yes Plan: The CT is suggestive of a high grade SBO in the duodenum. This would be quite unusual for a lap aurelia but needs to be at least ruled out. (5) BISMARK (acute kidney injury) Is this a current diagnosis for this admission?: Yes Plan: There is no old labs, but a Cr of 2.6 is porbably higher than his baseline. (6) Lactic acid acidosis Is this a current diagnosis for this admission?: Yes Plan: This is likely due to his dehydration, but the possibility of a high grade SBO suggests we repeat the lactic acid later today. Plan Summary: After 4L slow IVF down. Small doses of beta-blockade. Repeat lactic acid. Past Medical History Cardiac Medical History: Reports: Hyperlipidema, Hypertension Neurological Medical History: Reports: Seizures Endocrine Medical History: Reports: Diabetes Mellitus Type 2 Musculoskeltal Medical History: Reports: Arthritis Past Surgical History Past Surgical History: Reports: Orthopedic Surgery - back, neck, shoulder, hip Social/Family History - Social History Smoking Status: Current Every Day Smoker - Medication/Allergies Home Medications: Baclofen [Baclofen 10 mg Tablet] 5 - 10 mg PO BID PRN #10 tablet 09/29/17 Naproxen 500 mg PO BID PRN #30 tablet 09/29/17 Diclofenac Sodium [Voltaren] 4 gm TP QID PRN #100 gel..gm. 10/23/17 Methocarbamol [Robaxin 500 mg Tablet] 1,000 mg PO TID #15 tablet 01/30/19 Gabapentin Enacarbil [Horizant] 300 mg PO TID #30 tab.er.24h 02/20/19 Cyclobenzaprine HCl [Flexeril 10 mg Tablet] 10 mg PO TIDP PRN #15 tab 01/06/20 Oxycodone HCl/Acetaminophen [Percocet 5-325 mg Tablet] 1 - 2 tab PO Q4H PRN #15 tablet 01/06/20 Allergies/Adverse Reactions: Penicillins Allergy (Verified 02/06/20 11:59) tomato Allergy (Verified 02/06/20 11:59) Review of Systems Constitutional: PRESENT: anorexia, fatigue, weakness Nose, Mouth, and Throat: PRESENT: vertigo Respiratory: ABSENT: cough, hemoptysis Gastrointestinal: PRESENT: abdominal pain, bloating, nausea, vomiting Genitourinary: ABSENT: dysuria, hematuria Musculoskeletal: ABSENT: joint swelling Integumentary: ABSENT: rash, wounds Neurological: ABSENT: abnormal gait, abnormal speech, confusion, dizziness, focal weakness, syncope Endocrine: ABSENT: cold intolerance, heat intolerance, polydipsia, polyuria Hematologic/Lymphatic: ABSENT: easy bleeding, easy bruising Physical Exam Vital Signs: Temp Pulse Resp BP Pulse Ox 28 H 138/99 H 93 02/06/20 11:55 02/06/20 11:55 02/06/20 11:55 Intake & Output 02/05/20 02/06/20 02/07/20 06:59 06:59 06:59 Intake Total 1000 Balance 1000 General appearance: PRESENT: mild distress, thin Head exam: PRESENT: atraumatic, normocephalic Eye exam: PRESENT: conjunctiva pink, EOMI, PERRLA. ABSENT: scleral icterus Ear exam: PRESENT: normal external ear exam Mouth exam: PRESENT: moist, tongue midline Respiratory exam: PRESENT: clear to auscultation demar. ABSENT: rales, rhonchi, wheezes Cardiovascular exam: PRESENT: RRR, tachycardia GI/Abdominal exam: PRESENT: distended, guarding Rectal exam: PRESENT: deferred Gentrourinary exam: PRESENT: indwelling catheter Extremities exam: PRESENT: full ROM. ABSENT: calf tenderness, clubbing, pedal edema Musculoskeletal exam: PRESENT: normal inspection Neurological exam: PRESENT: alert, awake, oriented to person, oriented to place, oriented to time, oriented to situation, CN II-XII grossly intact. ABSENT: motor sensory deficit Skin exam: PRESENT: dry, intact, warm. ABSENT: cyanosis, rash Tubes/Lines: PRESENT: Nasogastic Tube Laboratory/Radiographs Laboratory Results: 02/06/20 11:30 02/06/20 09:55 02/06/20 02/06/20 02/06/20 09:55 09:55 09:55 WBC 5.5 RBC 4.15 L Hgb 11.9 L Hct 34.8 L MCV 84 MCH 28.7 MCHC 34.2 RDW 14.8 H Plt Count 283 Seg Neutrophils % 72.0 VBG pH 7.37 VBG pCO2 47.0 VBG HCO3 26.3 VBG Base Excess 0.5 Sodium 135.2 L Potassium 3.8 Chloride 90 L Carbon Dioxide 26 Anion Gap 19 BUN 61 H Creatinine 2.64 H Est GFR ( Amer) 30 L Glucose 151 H Lactic Acid Calcium 8.9 Total Bilirubin 3.2 H AST 117 H Alkaline Phosphatase 61 Total Protein 5.8 L Albumin 3.4 L Urine Color Urine Appearance Urine pH Ur Specific [place] Urine Protein Urine Glucose (UA) Urine Ketones Urine Blood Urine RBC (Auto) Blood Type Antibody Screen 02/06/20 02/06/20 02/06/20 09:55 10:18 11:30 WBC 6.0 RBC 4.06 L Hgb 11.7 L Hct 33.8 L MCV 83 MCH 28.9 MCHC 34.7 RDW 14.9 H Plt Count 267 Seg Neutrophils % 67.7 VBG pH VBG pCO2 VBG HCO3 VBG Base Excess Sodium Potassium Chloride Carbon Dioxide Anion Gap BUN Creatinine Est GFR ( Amer) Glucose Lactic Acid 6.4 H Calcium Total Bilirubin AST Alkaline Phosphatase Total Protein Albumin Urine Color Urine Appearance Urine pH Ur Specific [place] Urine Protein Urine Glucose (UA) Urine Ketones Urine Blood Urine RBC (Auto) Blood Type A POSITIVE Antibody Screen NEGATIVE 02/06/20 11:43 WBC RBC Hgb Hct MCV MCH MCHC RDW Plt Count Seg Neutrophils % VBG pH VBG pCO2 VBG HCO3 VBG Base Excess Sodium Potassium Chloride Carbon Dioxide Anion Gap BUN Creatinine Est GFR ( Amer) Glucose Lactic Acid Calcium Total Bilirubin AST Alkaline Phosphatase Total Protein Albumin Urine Color [place] Urine Appearance TURBID Urine pH 5.0 Ur Specific [place] 1.026 Urine Protein >=500 H Urine Glucose (UA) NEGATIVE Urine Ketones TRACE H Urine Blood MODERATE H Urine RBC (Auto) 21 Blood Type Antibody Screen 02/06/20 09:55 Troponin I 0.107 Impressions: Chest X-Ray 02/06/20 09:46 IMPRESSION: No focal airspace disease or other evidence of acute intrathoracic process. Abdomen/Pelvis CT 02/06/20 10:15 IMPRESSION: 1. Patient is now postoperative, status post recent cholecystectomy. This likely explains minimal free air in the abdomen and mild ascites. 2. There is considerable fluid distention of the distal esophagus, stomach and proximal small bowel however. Although ileus is in the differential, appearance is highly concerning for proximal true obstruction. EKG: ST at 150 All labs, radiographs, diagnostic studies and EKGs were personally reviewed: Yes In addition, reports of radiographic and diagnostic studies were read: Yes Critical Time Critical Time (minutes): 40 -: The care of a critically ill patient is dynamic. This note represents a static moment in the admission process. Orders and treatments may be given simultaneously and urgently, and time is not site safety representative of the treatment process. This patient requires Critical Care secondary to life threatening organ or limb dysfunction. Without Critical Care services, the patient is at risk for increased mortality and morbidity.
--- NOTE | 2020-02-06 12:48 | Progress Note ---
Provider Note Provider Note: A #16 Fr NG tube placed with viscous lidocaine. Thick dark aspirate coming out.
[2020-02-06] MEDS: PANTOPRAZOLE SODIUM 40 MG VIAL IV SCH (12:56)
[2020-02-06] MEDS: ENOXAPARIN SODIUM INJ 40 MG/0.4 ML DISP.SYRIN SUBCUT SCH (12:56)
[2020-02-06] MEDS: RINGERS SOLUTION,LACTATED 1,000 ML IV PRN ×2 (13:08→20:31)
--- NOTE | 2020-02-06 13:21 | RADIOLOGY REPORT (SQ) ---
EXAM DESCRIPTION: KUB/ABDOMEN (SINGLE VIEW) IMAGES COMPLETED DATE/TIME: 02/06/2020 12:53 pm REASON FOR STUDY: Check Placement of NG Tube COMPARISON: None. NUMBER OF VIEWS: One view. TECHNIQUE: Supine radiographic image of the abdomen acquired. LIMITATIONS: None. FINDINGS: BOWEL GAS PATTERN: Normal bowel gas pattern. No dilated loops. CALCIFICATIONS: No suspicious calcifications. SOFT TISSUES: No gross mass or suggestion of organomegaly. HARDWARE: The NG tube curves back upon itself in the gastric fundus. Approximately 14 cm of the tube is in the stomach. BONES: No acute fracture. No worrisome bone lesions. OTHER: No other significant finding. IMPRESSION: NG tube as described. TECHNICAL DOCUMENTATION: JOB ID: [id number] 2010 [employer]- All Rights Reserved Reading location - IP/workstation name: [email or web address]
[2020-02-06] MEDS: ONDANSETRON HCL INJ/PF 4 MG/2 ML SDV IV PRN (16:32)
[2020-02-06] MEDS ORDERED: METOPROLOL TARTRATE PF/INJ 5 MG/5 ML SDV IV PRN (16:51)
--- NOTE | 2020-02-06 17:20 | PDOC CONSULTATION ---
Consultation Consult Date: 02/06/20 Provider Consulted: ARCHANA ALMANZA Consult reason:: Postop laparoscopic cholecystectomy ileus with severe dehydration History of Present Illness Admission Date/PCP: 02/06/20 12:55 GIANCARLO CLAUDIO MD History of Present Illness: DU VELASQUEZ JR is a 55 year old male who underwent laparoscopic cholecystectomy about a week ago. Patient did well for about a day and sepsis sequently developed nausea, anorexia and abdominal pains. Was seen in ED today noted to be hypotensive with a lactic acid of 6 with elevated BUN/creatinine and low urine output. His LFTs are normal but the bilirubin is slightly elevated. He had a CT scan of the abdomen which showed ileus with possible bowel obstruction. He was given a lot of fluids in the ED and after about 4 L started to have 15 cc of urine in the bag highly colored. Past Medical History Cardiac Medical History: Reports: Hyperlipidema, Hypertension Neurological Medical History: Reports: Seizures Endocrine Medical History: Reports: Diabetes Mellitus Type 2 Musculoskeltal Medical History: Reports: Arthritis Psychiatric Medical History: Denies: Depression Past Surgical History Past Surgical History: Reports: Appendectomy, Cholecystectomy, Orthopedic Surgery - back, neck, shoulder, hip Social History Smoking Status: Unknown if Ever Smoked Electronic Cigarette use?: No Family History Family History: Reviewed & Not Pertinent Parental Family History Reviewed: Yes Children Family History Reviewed: No Sibling(s) Family History Reviewed.: No Medication/Allergy Home Medications: Morphine Sulfate [Morphine Sulfate ER] 30 mg PO Q12 02/06/20 Oxycodone HCl/Acetaminophen [Percocet 5-325 mg Tablet] 1 tab PO Q4HP PRN 02/06/20 Allergies/Adverse Reactions: Penicillins Allergy (Verified 02/06/20 11:59) tomato Allergy (Verified 02/06/20 11:59) Review of Systems Constitutional: PRESENT: weakness Gastrointestinal: PRESENT: abdominal pain, nausea Physical Exam Vital Signs: Temp Pulse Resp BP Pulse Ox 98.8 F 144 H 35 H 96/67 L 95 02/06/20 14:53 02/06/20 14:53 02/06/20 14:53 02/06/20 14:53 02/06/20 14:53 Intake & Output 02/05/20 02/06/20 02/07/20 06:59 06:59 06:59 Intake Total 3000 Output Total 4915 Balance -1915 Weight 91.8 kg General appearance: PRESENT: mild distress Eye exam: PRESENT: conjunctiva pink Mouth exam: PRESENT: dry mucosa Neck exam: PRESENT: full ROM Respiratory exam: PRESENT: clear to auscultation demar Cardiovascular exam: PRESENT: tachycardia Pulses: PRESENT: normal radial pulses Vascular exam: PRESENT: normal capillary refill GI/Abdominal exam: PRESENT: distended, soft, tenderness - Along trocar sites primarily along the periumbilical area. There is also extensive ecchymosis along the sites and again primarily along the periumbilical area Rectal exam: PRESENT: deferred Neurological exam: PRESENT: awake, oriented to person, oriented to place, oriented to time, oriented to situation Psychiatric exam: PRESENT: anxious Skin exam: PRESENT: normal color, warm Results Laboratory Results: 02/06/20 11:30 02/06/20 09:55 02/06/20 02/06/20 02/06/20 09:55 09:55 09:55 WBC 5.5 RBC 4.15 L Hgb 11.9 L Hct 34.8 L MCV 84 MCH 28.7 MCHC 34.2 RDW 14.8 H Plt Count 283 Seg Neutrophils % 72.0 VBG pH 7.37 VBG pCO2 47.0 VBG HCO3 26.3 VBG Base Excess 0.5 Sodium 135.2 L Potassium 3.8 Chloride 90 L Carbon Dioxide 26 Anion Gap 19 BUN 61 H Creatinine 2.64 H Est GFR ( Amer) 30 L Glucose 151 H Lactic Acid Calcium 8.9 Total Bilirubin 3.2 H AST 117 H Alkaline Phosphatase 61 Total Protein 5.8 L Albumin 3.4 L Urine Color Urine Appearance Urine pH Ur Specific [place] Urine Protein Urine Glucose (UA) Urine Ketones Urine Blood Urine RBC (Auto) Blood Type Antibody Screen 02/06/20 02/06/20 02/06/20 09:55 10:18 11:30 WBC 6.0 RBC 4.06 L Hgb 11.7 L Hct 33.8 L MCV 83 MCH 28.9 MCHC 34.7 RDW 14.9 H Plt Count 267 Seg Neutrophils % 67.7 VBG pH VBG pCO2 VBG HCO3 VBG Base Excess Sodium Potassium Chloride Carbon Dioxide Anion Gap BUN Creatinine Est GFR ( Amer) Glucose Lactic Acid 6.4 H Calcium Total Bilirubin AST Alkaline Phosphatase Total Protein Albumin Urine Color Urine Appearance Urine pH Ur Specific [place] Urine Protein Urine Glucose (UA) Urine Ketones Urine Blood Urine RBC (Auto) Blood Type A POSITIVE Antibody Screen NEGATIVE 02/06/20 02/06/20 11:43 12:22 WBC RBC Hgb Hct MCV MCH MCHC RDW Plt Count Seg Neutrophils % VBG pH VBG pCO2 VBG HCO3 VBG Base Excess Sodium Potassium Chloride Carbon Dioxide Anion Gap BUN Creatinine Est GFR ( Amer) Glucose Lactic Acid 2.7 H Calcium Total Bilirubin AST Alkaline Phosphatase Total Protein Albumin Urine Color [place] Urine Appearance TURBID Urine pH 5.0 Ur Specific [place] 1.026 Urine Protein >=500 H Urine Glucose (UA) NEGATIVE Urine Ketones TRACE H Urine Blood MODERATE H Urine RBC (Auto) 21 Blood Type Antibody Screen 02/06/20 09:55 Troponin I 0.107 Impressions: Chest X-Ray 02/06/20 09:46 IMPRESSION: No focal airspace disease or other evidence of acute intrathoracic process. Abdomen/Pelvis CT 02/06/20 10:15 IMPRESSION: 1. Patient is now postoperative, status post recent cholecystectomy. This likely explains minimal free air in the abdomen and mild ascites. 2. There is considerable fluid distention of the distal esophagus, stomach and proximal small bowel however. Although ileus is in the differential, appearance is highly concerning for proximal true obstruction. KUB X-Ray 02/06/20 12:24 IMPRESSION: NG tube as described. Assessment & Plan - Diagnosis (1) Ileus following lap aurelia Is this a current diagnosis for this admission?: Yes (2) BISMARK (acute kidney injury) Is this a current diagnosis for this admission?: Yes (3) Dehydration Is this a current diagnosis for this admission?: Yes (4) Hypovolemic shock Is this a current diagnosis for this admission?: Yes (5) Lactic acid acidosis Is this a current diagnosis for this admission?: Yes (6) Sinus tachycardia Is this a current diagnosis for this admission?: Yes - Time Time Spent: 30 to 50 Minutes - Inpatient Certification Medical Necessity: Need For IV Fluids, Need For Continuous Telemetry Monitoring - Plan Summary Plan Summary: 55-year-old male post laparoscopic cholecystectomy about a week ago and came to the ED with abdominal pains nausea and anorexia. Noted to be hypotensive with lactic acid of about 6. He was given a lot of fluids with improvement in his urine output. CT scan of the abdomen showed ileus and possible bowel o bstruction. His abdomen is distended soft with extensive ecchymosis along the trocar sites. There is tenderness along the trocar sites but no inflammation noted.His white count and LFTs are normal except for slightly elevated bilirubin. 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 This may be all related to postoperative ileus with dehydration and hypotension. Recommendations: Continue with hydration ICU care per fur cutting machine operator. We will follow the patient in ICU and make sure there are no further signs of bowel obstruction.
[2020-02-06] MEDS: HYDROMORPHONE HCL INJ/PF 2 MG/ML AMPULE IV PRN (17:48)
[2020-02-06] MEDS ORDERED: RINGERS SOLUTION,LACTATED 1,000 ML IV ONE (22:30)
[2020-02-06 23:02] LABS: HEMOGLOBIN 11.7 g/dL (13.5-17.0); MEAN CORPUSCULAR HEMOGLOBIN 28.7 pg (27.0-33.4); MEAN CORPUSCULAR HGB CONC 34.5 g/dL (32.0-36.0); MEAN CORPUSCULAR VOLUME 83 fl (80-97); PLATELET COUNT 175 10^3/uL (150-450); RED BLOOD COUNT 4.09 10^6/uL (4.35-5.55); RED CELL DISTRIBUTION WIDTH 14.9 % (11.5-14.0); WHITE BLOOD COUNT 3.8 10^3/uL (4.0-10.5)
[2020-02-06 23:30] LABS: ABSOLUTE LYMPHOCYTES# (MANUAL) 1.1 10^3/uL (0.5-4.7); ABSOLUTE MONOCYTES # (MANUAL) 0.1 10^3/uL (0.1-1.4); BASOPHILS % (MANUAL) 0 % (0-2); EOSINOPHILS % (MANUAL) 0 % (0-6); LYMPHOCYTES % (MANUAL) 28 % (13-45); MONOCYTES % (MANUAL) 2 % (3-13); SEGMENTED NEUTROPHILS % (MAN) 70 % (42-78); TOTAL CELLS COUNTED 100
[2020-02-06 23:32] LABS: ANISOCYTOSIS SLIGHT; OVALOCYTES SLIGHT; PLATELET CLUMPS PRESENT; PLATELET COMMENT ADEQUATE; POIKILOCYTOSIS SLIGHT; TOXIC GRANULATION SLIGHT
[2020-02-06 23:35] LABS: ALBUMIN 2.8 g/dL (3.5-5.0); ALKALINE PHOSPHATASE 47 U/L (38-126); ANION GAP 12 (5-19); ASPARTATE AMINO TRANSFERASE 159 U/L (17-59); BILIRUBIN,DIRECT 2.2 mg/dL (0.0-0.4); BLOOD UREA NITROGEN 63 mg/dL (7-20); CARBON DIOXIDE 25 mmol/L (22-30); CHLORIDE 98 mmol/L (98-107); GLUCOSE 99 mg/dL (75-110); PHOSPHORUS 2.7 mg/dL (2.5-4.5); TOTAL PROTEIN 5.4 g/dL (6.3-8.2)
[2020-02-07 04:31] LABS: ANION GAP 11 (5-19); BLOOD UREA NITROGEN 67 mg/dL (7-20); CALCIUM 8.4 mg/dL (8.4-10.2); CARBON DIOXIDE 26 mmol/L (22-30); CHLORIDE 97 mmol/L (98-107); GLUCOSE 95 mg/dL (75-110); POTASSIUM 4.3 mmol/L (3.6-5.0)
[2020-02-07 04:45] LABS: HEMATOCRIT 27.1 % (37.9-51.0); MEAN CORPUSCULAR HEMOGLOBIN 28.8 pg (27.0-33.4); MEAN CORPUSCULAR HGB CONC 34.6 g/dL (32.0-36.0); MEAN CORPUSCULAR VOLUME 83 fl (80-97); PLATELET COUNT 190 10^3/uL (150-450); RED BLOOD COUNT 3.26 10^6/uL (4.35-5.55); RED CELL DISTRIBUTION WIDTH 14.9 % (11.5-14.0)
[2020-02-07 04:47] LABS: HEMOGLOBIN 9.4 g/dL (13.5-17.0)
[2020-02-07 04:50] LABS: ABSOLUTE LYMPHOCYTES# (MANUAL) 2.4 10^3/uL (0.5-4.7); ABSOLUTE MONOCYTES # (MANUAL) 0.5 10^3/uL (0.1-1.4); BAND NEUTROPHILS % (MANUAL) 6 % (3-5); BASOPHILS % (MANUAL) 0 % (0-2); EOSINOPHILS % (MANUAL) 1 % (0-6); LYMPHOCYTES % (MANUAL) 40 % (13-45); MONOCYTES % (MANUAL) 9 % (3-13); SEGMENTED NEUTROPHILS % (MAN) 44 % (42-78); TOTAL CELLS COUNTED 100
[2020-02-07 04:51] LABS: ANISOCYTOSIS SLIGHT; BURR CELLS SLIGHT; PLATELET COMMENT ADEQUATE; POIKILOCYTOSIS SLIGHT; TEAR DROP CELLS SLIGHT; TOXIC GRANULATION 1+
[2020-02-07] MEDS: RINGERS SOLUTION,LACTATED 1,000 ML IV PRN ×4 (06:21→23:35)
[2020-02-07] MEDS: ENOXAPARIN SODIUM INJ 40 MG/0.4 ML DISP.SYRIN SUBCUT SCH (09:43)
[2020-02-07] MEDS: PANTOPRAZOLE SODIUM 40 MG VIAL IV SCH (09:44)
[2020-02-07] MEDS ORDERED: GLUCAGON,HUMAN RECOMB 1 MG INJ IM PRN (13:14)
[2020-02-07] MEDS ORDERED: DEXTROSE 50%-WATER 25 GM/50 ML DISP.SYRIN IV PRN ×2 (13:14)
[2020-02-07] MEDS ORDERED: DEXTROSE 40% GEL 15 GM TUBE PO PRN ×2 (13:14)
--- NOTE | 2020-02-07 15:50 | PDOC CRITICAL CARE PROG REPORT ---
General Date:: 02/07/20 ICU Day:: 2 Hospital Day:: 2 Resuscitation Status: Full Code Events in the past 12 to 24 Hours:: Less pain. Review of systems relevant to events:: GI Reason for ICU Addmission:: ST, lactic acidosis. Improved. - Medications: Medications reviewed and adjusted accordingly: Yes Vasopressors:: None Sedation:: None Physical Exam Vital Signs: Temp Pulse Resp BP Pulse Ox 98.5 F 132 H 34 H 96/70 L 94 02/07/20 12:00 02/07/20 14:00 02/07/20 14:23 02/07/20 14:23 02/07/20 14:23 Intake & Output 02/06/20 02/07/20 02/08/20 06:59 06:59 06:59 Intake Total 6000 980 Output Total 8450 100 Balance -2450 880 Weight 92.8 kg Weight/Height Weight 92.8 kg Height 5 ft 8 in General appearance: PRESENT: no acute distress, cooperative, thin Head exam: PRESENT: atraumatic, normocephalic Eye exam: PRESENT: conjunctiva pink, EOMI, PERRLA. ABSENT: scleral icterus Ear exam: PRESENT: normal external ear exam Mouth exam: PRESENT: moist, tongue midline Respiratory exam: PRESENT: clear to auscultation demar, decreased breath sounds. ABSENT: rales, rhonchi, wheezes Cardiovascular exam: PRESENT: tachycardia GI/Abdominal exam: PRESENT: distended, normal bowel sounds, soft, other - Much softer and no pain compared carmel yesterday.. ABSENT: guarding, mass, organolmegaly, rebound, tenderness Rectal exam: PRESENT: deferred Gentrourinary exam: PRESENT: indwelling catheter Neurological exam: PRESENT: alert, awake, oriented to person, oriented to place, CN II-XII grossly intact Psychiatric exam: PRESENT: appropriate affect, normal mood. ABSENT: homicidal ideation, suicidal ideation Skin exam: PRESENT: dry, intact, warm. ABSENT: cyanosis, rash Tubes/Lines: PRESENT: Nasogastic Tube Laboratory/Radiographs Laboratory Results: 02/07/20 03:57 02/07/20 03:57 02/06/20 02/06/20 02/06/20 16:50 22:46 22:46 WBC 3.8 L RBC 4.09 L Hgb 11.7 L Hct 34.0 L MCV 83 MCH 28.7 MCHC 34.5 RDW 14.9 H Plt Count 175 Seg Neutrophils % Not Reportable Sodium 134.5 L Potassium 4.0 Chloride 98 Carbon Dioxide 25 Anion Gap 12 BUN 63 H Creatinine 2.13 H Est GFR ( Amer) 39 L Glucose 99 Lactic Acid 1.8 Calcium 8.0 L Phosphorus 2.7 Total Bilirubin 3.0 H AST 159 H Alkaline Phosphatase 47 Ammonia Total Protein 5.4 L Albumin 2.8 L 02/06/20 02/07/20 02/07/20 22:46 03:57 03:57 WBC 6.0 RBC 3.26 L Hgb 9.4 L D Hct 27.1 L MCV 83 MCH 28.8 MCHC 34.6 RDW 14.9 H Plt Count 190 Seg Neutrophils % Not Reportable Sodium 134.0 L Potassium 4.3 Chloride 97 L Carbon Dioxide 26 Anion Gap 11 BUN 67 H Creatinine 2.23 H Est GFR ( Amer) 37 L Glucose 95 Lactic Acid Calcium 8.4 Phosphorus Total Bilirubin AST Alkaline Phosphatase Ammonia < 8.7 L Total Protein Albumin 02/06/20 09:55 Troponin I 0.107 Impressions: Chest X-Ray 02/06/20 09:46 IMPRESSION: No focal airspace disease or other evidence of acute intrathoracic process. Abdomen/Pelvis CT 02/06/20 10:15 IMPRESSION: 1. Patient is now postoperative, status post recent cholecystectomy. This likely explains minimal free air in the abdomen and mild ascites. 2. There is considerable fluid distention of the distal esophagus, stomach and proximal small bowel however. Although ileus is in the differential, appearance is highly concerning for proximal true obstruction. KUB X-Ray 02/06/20 12:24 IMPRESSION: NG tube as described. All labs, radiographs, diagnostic studies and EKGs were personally reviewed: Yes In addition, reports of radiographic and diagnostic studies were read: Yes Assessment and Plan - Diagnosis (1) Dehydration Is this a current diagnosis for this admission?: Yes Plan: Patient has had nearly 8L of fluid. Junaid Boyce did a bedside U/S finding his IJ nearly flat and collapsed. IVF at 200cc/hr. (2) Sinus tachycardia Is this a current diagnosis for this admission?: Yes Plan: He is still tachycardic with a BP that is borderline. No cardizem or lopressor yet. (3) Hypovolemic shock Is this a current diagnosis for this admission?: Yes Plan: Resolved (4) Small bowel obstruction Is this a current diagnosis for this admission?: Yes Plan: This is versus ileus. His NG has drained well. His abd is softer. This makes high grade SBO less likely. (5) BISMARK (acute kidney injury) Is this a current diagnosis for this admission?: Yes Plan: No change with fluid. (6) Lactic acid acidosis Is this a current diagnosis for this admission?: Yes Plan: Resolved Plan Summary: Observe overnight and hope to downgrade in AM Critical Time Critical Time (minutes): 35 Level of Care: ICU Anticipated discharge: Home Anticipated DC Timeframe: Other -: 1. The care of a critical patient is a dynamic process. 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 The timeframe for treatments given in order is not necessarily the actual time these treatments may have been done. 2. This patient requires critical care secondary to ongoing requirements for therapy not offered or safe outside the critical care environment. Transfer to a lower level of care will result in altered life or limb morbidity and mortality. 3. Multidisciplinary rounds completed. 4. ABCDE bundle addressed.
[2020-02-07] MEDS ORDERED: FUROSEMIDE INJ/PF 20 MG/2 ML SDV IV ONE (16:30)
[2020-02-07] MEDS: INSULIN REG, HUMAN 100 UNIT/ML 3 ML VIAL (PYX) SUBCUT SCH ×2 (17:18→23:58)
--- NOTE | 2020-02-07 17:59 | PDOC PROGRESS REPORT ---
Subjective Progress Note for:: 02/07/20 Subjective:: Feeling a lot better today. Patient awake alert and oriented. Denies any abdominal pains. Admits to having flatus and wanting to have oatmeal. Reason For Visit: ST, DEHYDRATION, POSSIBLE HIGH GRADE SBO Physical Exam Vital Signs: Temp Pulse Resp BP Pulse Ox 100.3 F 131 H 32 H 84/68 L 95 02/07/20 16:00 02/07/20 16:00 02/07/20 16:09 02/07/20 16:09 02/07/20 16:09 Intake & Output 02/06/20 02/07/20 02/08/20 06:59 06:59 06:59 Intake Total 6000 980 Output Total 8450 145 Balance -2450 835 Weight 92.8 kg Exam: Abdomen is much less distended and soft with no tenderness. Areas of ecchymosis are stable and appears to have not worsen. Results Laboratory Results: 02/07/20 03:57 02/07/20 03:57 02/06/20 02/06/20 02/06/20 22:46 22:46 22:46 WBC 3.8 L RBC 4.09 L Hgb 11.7 L Hct 34.0 L MCV 83 MCH 28.7 MCHC 34.5 RDW 14.9 H Plt Count 175 Seg Neutrophils % Not Reportable Sodium 134.5 L Potassium 4.0 Chloride 98 Carbon Dioxide 25 Anion Gap 12 BUN 63 H Creatinine 2.13 H Est GFR ( Amer) 39 L Glucose 99 Calcium 8.0 L Phosphorus 2.7 Total Bilirubin 3.0 H AST 159 H Alkaline Phosphatase 47 Ammonia < 8.7 L Total Protein 5.4 L Albumin 2.8 L 02/07/20 02/07/20 03:57 03:57 WBC 6.0 RBC 3.26 L Hgb 9.4 L D Hct 27.1 L MCV 83 MCH 28.8 MCHC 34.6 RDW 14.9 H Plt Count 190 Seg Neutrophils % Not Reportable Sodium 134.0 L Potassium 4.3 Chloride 97 L Carbon Dioxide 26 Anion Gap 11 BUN 67 H Creatinine 2.23 H Est GFR ( Amer) 37 L Glucose 95 Calcium 8.4 Phosphorus Total Bilirubin AST Alkaline Phosphatase Ammonia Total Protein Albumin 02/06/20 09:55 Troponin I 0.107 Impressions: Chest X-Ray 02/06/20 09:46 IMPRESSION: No focal airspace disease or other evidence of acute intrathoracic process. Abdomen/Pelvis CT 02/06/20 10:15 IMPRESSION: 1. Patient is now postoperative, status post recent cholecystectomy. This likely explains minimal free air in the abdomen and mild ascites. 2. There is considerable fluid distention of the distal esophagus, stomach and proximal small bowel however. Although ileus is in the differential, appearance is highly concerning for proximal true obstruction. KUB X-Ray 02/06/20 12:24 IMPRESSION: NG tube as described. Assessment & Plan - Diagnosis (1) Ileus following lap aurelia Is this a current diagnosis for this admission?: Yes (2) BISMARK (acute kidney injury) Is this a current diagnosis for this admission?: Yes (3) Dehydration Is this a current diagnosis for this admission?: Yes (4) Hypovolemic shock Is this a current diagnosis for this admission?: Yes (5) Lactic acid acidosis Is this a current diagnosis for this admission?: Yes (6) Sinus tachycardia Is this a current diagnosis for this admission?: Yes - Time Critical Time spent with patient: 15-24 minutes Anticipated Discharge Disposition: Home, Self Care Anticipated Discharge Timeframe: 1 week - Inpatient Certification Medical Necessity: Need Close Monitoring Due to Risk of Patient Decompensation, Need For IV Fluids - Plan Summary Plan Summary: 55-year-old male about a week post laparoscopic cholecystectomy. Patient discharge the next day but immediately noted to have nausea vomiting abdominal distention and weakness. Went to ED yesterday and noted to be hypotensive. CT scan showed ileus versus obstruction. Today patient NG tube much less drainage. He seems to be more hemodynamically improved. The urine output also has improved with kidney function still abnormal but stable. He admits to have flatus today. Recommendations: If he continues to pass flatus NG tube could be discontinued in a.m. and his continuing clears and advance as tolerated. Further management of his acute kidney insufficiency with fluids. His liver functions remain stable. If they get worse then HIDA scan will be in order then. We will sign off but call for questions.
[2020-02-08 04:06] LABS: ABSOLUTE LYMPHOCYTES (AUTO) 0.4 10^3/uL (0.5-4.7); ABSOLUTE MONOCYTES (AUTO) 0.4 10^3/uL (0.1-1.4); ABSOLUTE NEUT (AUTO) 4.6 10^3/uL (1.7-8.2); BASOPHILS % (AUTO) 0.1 % (0-2); HEMATOCRIT 29.4 % (37.9-51.0); HEMOGLOBIN 10.2 g/dL (13.5-17.0); LYMPHOCYTES % (AUTO) 7.6 % (13-45); MEAN CORPUSCULAR HEMOGLOBIN 28.8 pg (27.0-33.4); MEAN CORPUSCULAR HGB CONC 34.7 g/dL (32.0-36.0); MEAN CORPUSCULAR VOLUME 83 fl (80-97); MONOCYTES % (AUTO) 7.7 % (3-13); PLATELET COUNT 194 10^3/uL (150-450); RED BLOOD COUNT 3.54 10^6/uL (4.35-5.55); RED CELL DISTRIBUTION WIDTH 15.5 % (11.5-14.0); SEGMENTED NEUTROPHILS % (AUTO) 84.6 % (42-78); TOTAL CELLS COUNTED % (AUTO) 100 %; WHITE BLOOD COUNT 5.4 10^3/uL (4.0-10.5)
[2020-02-08 04:17] LABS: ANION GAP 13 (5-19); BLOOD UREA NITROGEN 80 mg/dL (7-20); CALCIUM 8.3 mg/dL (8.4-10.2); CARBON DIOXIDE 27 mmol/L (22-30); CHLORIDE 98 mmol/L (98-107); GLUCOSE 102 mg/dL (75-110)
[2020-02-08 04:30] LABS: POTASSIUM 3.3 mmol/L (3.6-5.0)
[2020-02-08] MEDS: INSULIN REG, HUMAN 100 UNIT/ML 3 ML VIAL (PYX) SUBCUT SCH ×3 (05:04→17:27)
[2020-02-08] MEDS: RINGERS SOLUTION,LACTATED 1,000 ML IV PRN ×4 (05:13→20:29)
[2020-02-08] MEDS: PANTOPRAZOLE SODIUM 40 MG VIAL IV SCH (09:42)
[2020-02-08] MEDS: ENOXAPARIN SODIUM INJ 40 MG/0.4 ML DISP.SYRIN SUBCUT SCH (09:46)
--- NOTE | 2020-02-08 11:14 | PDOC CRITICAL CARE PROG REPORT ---
General Date:: 02/08/20 Hospital Day:: 3 Resuscitation Status: Full Code Events in the past 12 to 24 Hours:: NG clamped with no nausea so far. Review of systems relevant to events:: GI, renal Reason for ICU Addmission:: ST, lactic acidosis. Improved. - Medications: Medications reviewed and adjusted accordingly: Yes Vasopressors:: None Sedation:: None. Physical Exam Vital Signs: Temp Pulse Resp BP Pulse Ox 98.1 F 120 H 23 H 114/78 98 02/08/20 03:28 02/08/20 08:00 02/08/20 08:00 02/08/20 08:00 02/08/20 08:00 Intake & Output 02/07/20 02/08/20 02/09/20 06:59 06:59 06:59 Intake Total 6000 2980 937 Output Total 8450 3425 1580 Balance -2450 -445 -643 Weight 92.8 kg 89.4 kg Weight/Height Weight 89.4 kg Height 5 ft 8 in General appearance: PRESENT: no acute distress, cooperative Head exam: PRESENT: atraumatic, normocephalic Eye exam: PRESENT: conjunctiva pink, EOMI, PERRLA. ABSENT: scleral icterus Ear exam: PRESENT: normal external ear exam Mouth exam: PRESENT: moist, tongue midline Respiratory exam: PRESENT: clear to auscultation demar. ABSENT: rales, rhonchi, wheezes Cardiovascular exam: PRESENT: RRR, tachycardia. ABSENT: diastolic murmur, rubs, systolic murmur GI/Abdominal exam: PRESENT: normal bowel sounds, soft. ABSENT: distended, guarding, mass, organolmegaly, rebound, tenderness Rectal exam: PRESENT: deferred Extremities exam: PRESENT: full ROM. ABSENT: calf tenderness, clubbing, pedal edema Musculoskeletal exam: PRESENT: normal inspection Neurological exam: PRESENT: alert, awake, oriented to person, oriented to place, oriented to time, oriented to situation, CN II-XII grossly intact. ABSENT: motor sensory deficit Psychiatric exam: PRESENT: appropriate affect, normal mood. ABSENT: homicidal ideation, suicidal ideation Skin exam: PRESENT: dry, intact, warm. ABSENT: cyanosis, rash Tubes/Lines: PRESENT: Nasogastic Tube Laboratory/Radiographs Laboratory Results: 02/08/20 03:35 02/08/20 03:35 02/08/20 02/08/20 03:35 03:35 WBC 5.4 RBC 3.54 L Hgb 10.2 L Hct 29.4 L MCV 83 MCH 28.8 MCHC 34.7 RDW 15.5 H Plt Count 194 Seg Neutrophils % 84.6 H Sodium 138.3 Potassium 3.3 L D Chloride 98 Carbon Dioxide 27 Anion Gap 13 BUN 80 H Creatinine 2.80 H Est GFR ( Amer) 28 L Glucose 102 Calcium 8.3 L 02/06/20 09:55 Troponin I 0.107 Impressions: Chest X-Ray 02/06/20 09:46 IMPRESSION: No focal airspace disease or other evidence of acute intrathoracic process. Abdomen/Pelvis CT 02/06/20 10:15 IMPRESSION: 1. Patient is now postoperative, status post recent cholecystectomy. This likely explains minimal free air in the abdomen and mild ascites. 2. There is considerable fluid distention of the distal esophagus, stomach and proximal small bowel however. Although ileus is in the differential, appearance is highly concerning for proximal true obstruction. KUB X-Ray 02/06/20 12:24 IMPRESSION: NG tube as described. EKG: NSR with rare PVCs. All labs, radiographs, diagnostic studies and EKGs were personally reviewed: Yes In addition, reports of radiographic and diagnostic studies were read: Yes Assessment and Plan - Diagnosis (1) Dehydration Is this a current diagnosis for this admission?: Yes Plan: Still dehydrated. His NG output has matched his IVF therefore he is still dry. NG clamped today in effort to try and remove. (2) Sinus tachycardia Is this a current diagnosis for this admission?: Yes Plan: Still present. Related to dehydration, pain physical stress. May need PRN beta- blockade IV hence the reason for telemetry downgrade. (3) Hypovolemic shock Is this a current diagnosis for this admission?: Yes Plan: Resolved (4) Small bowel obstruction Is this a current diagnosis for this admission?: Yes Plan: Doubtful he has a high grade SBO at this stage. (5) BISMARK (acute kidney injury) Is this a current diagnosis for this admission?: Yes Plan: Still in BISMARK and I suspect until his dehydration is resolved. (6) Lactic acid acidosis Is this a current diagnosis for this admission?: Yes Plan: Resolved Plan Summary: Downgraded to telemetry. Hope to be able to D/C NG tube. Critical Time Critical Time (minutes): 30 Level of Care: TELE Anticipated discharge: Home Anticipated DC Timeframe: Other -: 1. The care of a critical patient is a dynamic process. This note is a transportation services representative synopsis but static in nature. The timeframe for treatments given in order is not necessarily the actual time these treatments may have been done. 2. This patient requires critical care secondary to ongoing requirements for therapy not offered or safe outside the critical care environment. Transfer to a lower level of care will result in altered life or limb morbidity and mortality. 3. Multidisciplinary rounds completed. 4. ABCDE bundle addressed.
[2020-02-08] MEDS ORDERED: RINGERS SOLUTION,LACTATED 1,000 ML IV PRN (11:15)
[2020-02-08] MEDS: HYDROMORPHONE HCL INJ/PF 2 MG/ML AMPULE IV PRN ×2 (16:40→22:28)
[2020-02-08] MEDS: ONDANSETRON HCL INJ/PF 4 MG/2 ML SDV IV PRN (18:12)
--- NOTE | 2020-02-08 19:19 | EKG REPORT ---
SEVERITY:- ABNORMAL ECG - SINUS TACHYCARDIA MULTIPLE ATRIAL PREMATURE COMPLEXES : Confirmed by: Sigifredo Ramirez MD 08-Feb-2020 19:18:54
[2020-02-08] MEDS ORDERED: PRIMIDONE 250 MG TABLET PO ONE (23:00)
[2020-02-09] MEDS: INSULIN REG, HUMAN 100 UNIT/ML 3 ML VIAL (PYX) SUBCUT SCH ×4 (02:47→18:32)
[2020-02-09] MEDS: HYDROMORPHONE HCL INJ/PF 2 MG/ML AMPULE IV PRN ×6 (02:48→21:40)
[2020-02-09] MEDS: ONDANSETRON HCL INJ/PF 4 MG/2 ML SDV IV PRN ×3 (02:49→18:31)
[2020-02-09] MEDS: RINGERS SOLUTION,LACTATED 1,000 ML IV PRN ×2 (06:00→11:31)
[2020-02-09 07:45] LABS: ANION GAP 9 (5-19); BLOOD UREA NITROGEN 38 mg/dL (7-20); CALCIUM 7.8 mg/dL (8.4-10.2); CARBON DIOXIDE 26 mmol/L (22-30); CHLORIDE 103 mmol/L (98-107); GLUCOSE 120 mg/dL (75-110); POTASSIUM 3.1 mmol/L (3.6-5.0)
[2020-02-09] MEDS: ENOXAPARIN SODIUM INJ 40 MG/0.4 ML DISP.SYRIN SUBCUT SCH (09:19)
[2020-02-09] MEDS: PANTOPRAZOLE SODIUM 40 MG VIAL IV SCH (09:19)
[2020-02-09] MEDS ORDERED: PRIMIDONE 250 MG TABLET PO SCH (10:00)
[2020-02-09] MEDS ORDERED: ONDANSETRON HCL INJ/PF 4 MG/2 ML SDV IV PRN (14:30)
[2020-02-09] MEDS ORDERED: GLUCAGON,HUMAN RECOMB 1 MG INJ SUBCUT PRN (15:04)
[2020-02-09] MEDS ORDERED: DEXTROSE 40% GEL 15 GM TUBE PO PRN ×2 (15:04)
[2020-02-09] MEDS ORDERED: DEXTROSE 50%-WATER 25 GM/50 ML DISP.SYRIN IV PRN ×2 (15:04)
[2020-02-09 15:56] LABS: ABSOLUTE EOSINOPHILS # (AUTO) 0.1 10^3/uL (0.0-0.6); ABSOLUTE LYMPHOCYTES (AUTO) 0.5 10^3/uL (0.5-4.7); ABSOLUTE MONOCYTES (AUTO) 0.4 10^3/uL (0.1-1.4); ABSOLUTE NEUT (AUTO) 7.7 10^3/uL (1.7-8.2); BASOPHILS % (AUTO) 0.1 % (0-2); EOSINOPHILS % (AUTO) 0.7 % (0-6); HEMATOCRIT 25.8 % (37.9-51.0); HEMOGLOBIN 8.7 g/dL (13.5-17.0); LYMPHOCYTES % (AUTO) 5.8 % (13-45); MEAN CORPUSCULAR HEMOGLOBIN 28.5 pg (27.0-33.4); MEAN CORPUSCULAR HGB CONC 33.9 g/dL (32.0-36.0); MEAN CORPUSCULAR VOLUME 84 fl (80-97); MONOCYTES % (AUTO) 4.3 % (3-13); PLATELET COUNT 235 10^3/uL (150-450); RED BLOOD COUNT 3.06 10^6/uL (4.35-5.55); RED CELL DISTRIBUTION WIDTH 15.6 % (11.5-14.0); SEGMENTED NEUTROPHILS % (AUTO) 89.1 % (42-78); TOTAL CELLS COUNTED % (AUTO) 100 %; WHITE BLOOD COUNT 8.7 10^3/uL (4.0-10.5)
--- NOTE | 2020-02-09 15:59 | RADIOLOGY REPORT (SQ) ---
EXAM DESCRIPTION: CHEST SINGLE VIEW IMAGES COMPLETED DATE/TIME: 02/09/2020 3:39 pm REASON FOR STUDY: SOB, tachypnea, new oxygen requirement COMPARISON: 02/06/2020 NUMBER OF VIEWS: One view. TECHNIQUE: Single frontal radiographic image of the chest acquired. LIMITATIONS: None. FINDINGS: LUNGS AND PLEURA: Interval development of small bilateral pleural effusions. MEDIASTINUM AND HEART: Stable heart size and mediastinal structures. SUPPORT DEVICES: Nasogastric tube tip overlying the gastric fundus. BONY STRUCTURES: No acute findings. HARDWARE: None. OTHER: No other significant finding. IMPRESSION: Small pleural effusions. Reading location - IP/workstation name: [email or web address]
--- NOTE | 2020-02-09 16:00 | RADIOLOGY REPORT (SQ) ---
EXAM DESCRIPTION: KUB/ABDOMEN (SINGLE VIEW) IMAGES COMPLETED DATE/TIME: 02/09/2020 3:39 pm REASON FOR STUDY: distended/firm abdomen, check NGT placement COMPARISON: None. NUMBER OF VIEWS: One view. TECHNIQUE: Supine radiographic image of the abdomen acquired. LIMITATIONS: None. FINDINGS: BOWEL GAS PATTERN: Abundant gas within nondilated large and small bowel. Cecum not dilate d. CALCIFICATIONS: No suspicious calcifications. SOFT TISSUES: No gross mass or suggestion of organomegaly. HARDWARE: Lumbar fusion. BONES: No acute fracture. No worrisome bone lesions. OTHER: No other significant finding. IMPRESSION: NO RADIOGRAPHIC EVIDENCE FOR ACUTE ABDOMINAL DISEASE. TECHNICAL DOCUMENTATION: JOB ID: [id number] 2010 [employer]- All Rights Reserved Reading location - IP/workstation name: [email or web address]
[2020-02-09 16:28] LABS: ALBUMIN 2.6 g/dL (3.5-5.0); ALKALINE PHOSPHATASE 71 U/L (38-126); ANION GAP 11 (5-19); ASPARTATE AMINO TRANSFERASE 157 U/L (17-59); BILIRUBIN,DIRECT 1.4 mg/dL (0.0-0.4); BILIRUBIN,TOTAL 1.8 mg/dL (0.2-1.3); BLOOD UREA NITROGEN 29 mg/dL (7-20); CALCIUM 7.4 mg/dL (8.4-10.2); CARBON DIOXIDE 27 mmol/L (22-30); CHLORIDE 101 mmol/L (98-107); GLUCOSE 117 mg/dL (75-110); PHOSPHORUS 2.5 mg/dL (2.5-4.5); TOTAL PROTEIN 5.2 g/dL (6.3-8.2)
[2020-02-09] MEDS ORDERED: POTASSI CL 20 MEQ/50 ML RIDER 20 MEQ/50 ML RTUPB IV ONE (16:41)
[2020-02-09] MEDS: POTASSI CL 20 MEQ/50 ML RIDER 20 MEQ/50 ML RTUPB IV SCH ×3 (18:17→22:18)
--- NOTE | 2020-02-09 18:23 | PDOC PROGRESS REPORT ---
Subjective Progress Note for:: 02/09/20 Subjective:: NAEO. He was transferred from the ICU to the floor this morning. NGT was clamped and he was allowed a CLD, but patient became progressively more distended and started complaining of abdominal pain, so NGT was put back to LIS, and he put out almost 4 L from NGT. Reason For Visit: HIGH GRADE SBO Physical Exam Vital Signs: Temp Pulse Resp BP Pulse Ox 98.4 F 103 H 17 120/73 93 02/09/20 15:51 02/09/20 15:51 02/09/20 15:51 02/09/20 15:51 02/09/20 15:51 Intake & Output 02/08/20 02/09/20 02/10/20 06:59 06:59 06:59 Intake Total 2980 4624 1490 Output Total 3429 5845 Balance -445 -1221 1490 Weight 89.4 kg 91.3 kg Additional comments: General: ill-appearing elderly man Head: normocephalic, atraumatic Eyes: anicteric sclera ENT: moist mucus memranes, no oropharyngeal erythema/exudate Neck: +JVD Lungs: +bibasilar crackles Heart: regular, tachycardic, no murmurs/rubs/gallops Abdomen: no bowel sounds, distended but soft, minimally tender to deep palpation throughout, no rebound/guarding : no CVA tenderness, no suprapubic tenderness Extremities: warm and well perfused Vascular: 2+ peripheral pulses in all extremities Neuro: A&Ox3 Skin: no rash Results Laboratory Results: 02/09/20 15:13 02/09/20 15:13 02/09/20 02/09/20 02/09/20 06:47 15:13 15:13 WBC 8.7 RBC 3.06 L Hgb 8.7 L Hct 25.8 L MCV 84 MCH 28.5 MCHC 33.9 RDW 15.6 H Plt Count 235 Seg Neutrophils % 89.1 H Sodium 138.4 Cancelled Potassium 3.1 L Cancelled Chloride 103 Cancelled Carbon Dioxide 26 Cancelled Anion Gap 9 Cancelled BUN 38 H Cancelled Creatinine 0.99 Cancelled Est GFR ( Amer) > 60 Cancelled Est GFR (Non-Af Amer) Cancelled Glucose 120 H Cancelled Lactic Acid Calcium 7.8 L Cancelled Phosphorus Magnesium Total Bilirubin Cancelled AST Cancelled Alkaline Phosphatase Cancelled Total Protein Cancelled Albumin Cancelled 02/09/20 02/09/20 15:13 15:13 WBC RBC Hgb Hct MCV MCH MCHC RDW Plt Count Seg Neutrophils % Sodium 138.6 Potassium 3.0 L* Chloride 101 Carbon Dioxide 27 Anion Gap 11 BUN 29 H Creatinine 0.99 Est GFR ( Amer) > 60 Est GFR (Non-Af Amer) Glucose 117 H Lactic Acid 1.4 Calcium 7.4 L Phosphorus 2.5 Magnesium 2.0 Total Bilirubin 1.8 H AST 157 H Alkaline Phosphatase 71 Total Protein 5.2 L Albumin 2.6 L 02/06/20 09:55 Troponin I 0.107 Impressions: Abdomen/Pelvis CT 02/06/20 10:15 IMPRESSION: 1. Patient is now postoperative, status post recent cholecystectomy. This likely explains minimal free air in the abdomen and mild ascites. 2. There is considerable fluid distention of the distal esophagus, stomach and proximal small bowel however. Although ileus is in the differential, appearance is highly concerning for proximal true obstruction. Chest X-Ray 02/09/20 00:00 IMPRESSION: Small pleural effusions. KUB X-Ray 02/09/20 00:00 IMPRESSION: NO RADIOGRAPHIC EVIDENCE FOR ACUTE ABDOMINAL DISEASE. Assessment and Plan - Plan Summary Summary: 55 yo man who underwent a lap aurelia at [place] about a week ago. He felt well for about a day then became anorexic with abd pain and was not eating or drinking much after. He presented to the ED with hypovolemic shock, lactic acid of 6, renal dysfunction and a CT suggestive of a high grade duodenal SBO with a very distended stomach. SBO: he was decompressed with NGT, surgery was consulted, and he was managed conservatively. NGT was clamped on 02/07 and diet was advanced on 02/08 to CLD, which he did not tolerate. His NGT is back on LIS. - discussed with Dr. Elkins who will re-evaluate today, may require surgery this hospitalization since he has failed conservative tx - KUB Pre-Renal BISMARK: improved with aggressive IVF hydration, although now he is starting to look volume overloaded with new oxygen requirement and crackles on lung exam - CXR showed bilateral pleural effusions - DC IVF, but will not pursue diuresis at this time given that he is NPO and still putting out a lot through the NGT Hypokalemia: due to GI losses - replete with 80 mEq K Hypovolemic Shock: Resolved. He was admitted to the ICU initially and aggres sively hydrated. - Time Time Spent with patient: 35 or more minutes Anticipated Discharge Disposition: Home, Self Care Anticipated Discharge Timeframe: within 72 hours
[2020-02-09] MEDS ORDERED: PANTOPRAZOLE SODIUM 40 MG VIAL IV SCH (22:00)
--- NOTE | 2020-02-09 23:08 | CDI QUERY ---
<CHI PERSAUD - Last Filed: 02/09/20 23:07> CDI Query CDI Review: We are seeking further clarification of documentation to reflect the severity of illness of your patient. Noted in Surgical Consult Note: Ileus following lap aurelia Is this a current diagnosis for this admission?: Yes Abdomen/Pelvis CT 02/06/20 10:15 IMPRESSION: 1. Patient is now postoperative, status post recent cholecystectomy. This likely explains minimal free air in the abdomen and mild ascites. 2. There is considerable fluid distention of the distal esophagus, stomach and proximal small bowel however. Although ileus is in the differential, appearance is highly concerning for proximal true obstruction. Noted in Progress Notes: SBO: he was decompressed with NGT, surgery was consulted, and he was managed conservatively. NGT was clamped on 02/07 and diet was advanced on 02/08 to CLD, which he did not tolerate. His NGT is back on LIS. - discussed with Dr. Elkins who will re-evaluate today, may require surgery this hospitalization since he has failed conservative tx - KUB Based on your medical judgement, can you further clarify in the Progress Notes if SBO and / or ileus: Complete bowel obstruction Incomplete bowel obstruction Partial bowel obstruction Other / unspecified Thank you for your consideration. PITO Sampson RN Clinical Lacing [employer] Physician Advisor [email or web address] <MORA JULIAN - Last Filed: 02/10/20 08:40> CDI Query CDI Review: The patient has ileus. No evidence of SBO on KUB on 02/09/2020.
[2020-02-10] MEDS: POTASSI CL 20 MEQ/50 ML RIDER 20 MEQ/50 ML RTUPB IV SCH (00:25)
[2020-02-10] MEDS: ONDANSETRON HCL INJ/PF 4 MG/2 ML SDV IV PRN ×3 (00:25→18:19)
[2020-02-10] MEDS: HYDROMORPHONE HCL INJ/PF 2 MG/ML AMPULE IV PRN ×7 (00:25→21:32)
[2020-02-10] MEDS: INSULIN REG, HUMAN 100 UNIT/ML 3 ML VIAL (PYX) SUBCUT SCH ×4 (05:40→23:34)
[2020-02-10] MEDS ORDERED: GLUCAGON,HUMAN RECOMB 1 MG INJ IM PRN (08:34)
[2020-02-10] MEDS ORDERED: DEXTROSE 40% GEL 15 GM TUBE PO PRN ×2 (08:34)
[2020-02-10] MEDS ORDERED: AMINO ACIDS 5 %/DEXTROSE 20 % 1,000 ML IV PRN (08:34)
[2020-02-10] MEDS ORDERED: DEXTROSE 10%-WATER 1,000 ML IV PRN (08:34)
[2020-02-10] MEDS ORDERED: DEXTROSE 50%-WATER 25 GM/50 ML DISP.SYRIN IV PRN ×2 (08:34)
[2020-02-10] MEDS: ENOXAPARIN SODIUM INJ 40 MG/0.4 ML DISP.SYRIN SUBCUT SCH (09:51)
[2020-02-10 10:22] LABS: ABSOLUTE EOSINOPHILS # (AUTO) 0.1 10^3/uL (0.0-0.6); ABSOLUTE LYMPHOCYTES (AUTO) 0.5 10^3/uL (0.5-4.7); ABSOLUTE MONOCYTES (AUTO) 0.4 10^3/uL (0.1-1.4); ABSOLUTE NEUT (AUTO) 8.7 10^3/uL (1.7-8.2); BASOPHILS % (AUTO) 0.1 % (0-2); EOSINOPHILS % (AUTO) 0.5 % (0-6); HEMATOCRIT 27.3 % (37.9-51.0); HEMOGLOBIN 9.5 g/dL (13.5-17.0); LYMPHOCYTES % (AUTO) 5.6 % (13-45); MEAN CORPUSCULAR HEMOGLOBIN 29.1 pg (27.0-33.4); MEAN CORPUSCULAR HGB CONC 34.9 g/dL (32.0-36.0); MEAN CORPUSCULAR VOLUME 84 fl (80-97); MONOCYTES % (AUTO) 3.7 % (3-13); PLATELET COUNT 294 10^3/uL (150-450); RED BLOOD COUNT 3.27 10^6/uL (4.35-5.55); RED CELL DISTRIBUTION WIDTH 15.6 % (11.5-14.0); SEGMENTED NEUTROPHILS % (AUTO) 90.1 % (42-78); TOTAL CELLS COUNTED % (AUTO) 100 %; WHITE BLOOD COUNT 9.7 10^3/uL (4.0-10.5)
[2020-02-10 10:34] LABS: INTERNATIONAL RATION (INR) 3.67
[2020-02-10 10:41] LABS: PROTHROMBIN TIME 36.2 SEC (11.4-15.4)
[2020-02-10 10:44] LABS: ALBUMIN 2.8 g/dL (3.5-5.0); ALKALINE PHOSPHATASE 95 U/L (38-126); ANION GAP 10 (5-19); ASPARTATE AMINO TRANSFERASE 126 U/L (17-59); BILIRUBIN,DIRECT 1.5 mg/dL (0.0-0.4); BILIRUBIN,TOTAL 2.3 mg/dL (0.2-1.3); BLOOD UREA NITROGEN 22 mg/dL (7-20); CALCIUM 7.8 mg/dL (8.4-10.2); CARBON DIOXIDE 27 mmol/L (22-30); CHLORIDE 104 mmol/L (98-107); GLUCOSE 97 mg/dL (75-110); TOTAL PROTEIN 4.9 g/dL (6.3-8.2); TRIGLYCERIDES 330 mg/dL (<150)
[2020-02-10] MEDS ORDERED: LIDOCAINE 1% INJ-PF (10 MG/ML) 30 ML SDV ONE (10:52)
[2020-02-10] MEDS ORDERED: INSULIN REG, HUMAN 100 UNIT/ML 3 ML VIAL SUBCUT SCH (12:00)
[2020-02-10] MEDS: POTASSI CL 20 MEQ/1/2NS 1L 20 MEQ/1,000 ML RTUINJ IV PRN (15:47)
[2020-02-10] MEDS: AMINO ACIDS 5 %/DEXTROSE 20 % 1,000 ML IV PRN (18:06)
--- NOTE | 2020-02-10 18:20 | RADIOLOGY REPORT (SQ) ---
EXAM DESCRIPTION: CHEST SINGLE VIEW IMAGES COMPLETED DATE/TIME: 02/10/2020 11:50 am REASON FOR STUDY: central line dressing COMPARISON: 02/09/2020. EXAM PARAMETERS: NUMBER OF VIEWS: One view. TECHNIQUE: Single frontal radiographic view of the chest acquired. RADIATION DOSE: NA LIMITATIONS: None. FINDINGS: LUNGS AND PLEURA: Patchy parenchymal density in the left lung base. Small pleural effusio ns. No pneumothorax. MEDIASTINUM AND HILAR STRUCTURES: No masses. Contour normal. HEART AND VASCULAR STRUCTURES: Heart normal in size. Normal vasculature. BONES: No acute findings. HARDWARE: Central line on the right side, tip at the level of the superior vena cava. Nasogastric tu be, tip in the stomach. OTHER: No other significant finding. IMPRESSION: 1. SATISFACTORY POSITION OF THE CENTRAL LINE. NO PNEUMOTHORAX. 2. PATCHY DENSITY IN THE LEFT LUNG BASE AND SMALL PLEURAL EFFUSIONS, UNCHANGED. TECHNICAL DOCUMENTATION: JOB ID: [id number] 2010 [employer]- All Rights Reserved Reading location - IP/workstation name: [email or web address]
--- NOTE | 2020-02-10 19:50 | PDOC PROGRESS REPORT ---
Subjective Progress Note for:: 02/10/20 Subjective:: Abdominal pain and distention much improved today. He had a bowel movement yesterday. Reason For Visit: ST, DEHYDRATION, POSSIBLE HIGH GRADE SBO Physical Exam Vital Signs: Temp Pulse Resp BP Pulse Ox 98.5 F 112 H 16 119/82 91 L 02/10/20 16:12 02/10/20 19:00 02/10/20 16:12 02/10/20 16:12 02/10/20 16:12 Intake & Output 02/09/20 02/10/20 02/11/20 06:59 06:59 06:59 Intake Total 4624 2693 Output Total 5845 2100 650 Balance -1221 593 -650 Weight 91.3 kg 90.1 kg Additional comments: eneral: well-appearing elderly man, sitting up in chair, conversive Head: normocephalic, atraumatic Eyes: anicteric sclera ENT: moist mucus memranes, no oropharyngeal erythema/exudate Neck: +R IJ central line (placed 02/09) Lungs: CTAB Heart: RRR, no murmurs/rubs/gallops Abdomen: + but slow bowel sounds, distended but soft, no TTP, no rebound/guarding : no CVA tenderness, no suprapubic tenderness Extremities: warm and well perfused Vascular: 2+ peripheral pulses in all extremities Neuro: A&Ox3 Skin: no rash Results Laboratory Results: 02/10/20 09:47 02/10/20 09:47 02/10/20 02/10/20 09:47 09:47 WBC 9.7 RBC 3.27 L Hgb 9.5 L Hct 27.3 L MCV 84 MCH 29.1 MCHC 34.9 RDW 15.6 H Plt Count 294 Seg Neutrophils % 90.1 H Sodium 140.5 Potassium 4.0 D Chloride 104 Carbon Dioxide 27 Anion Gap 10 BUN 22 H Creatinine 0.84 Est GFR ( Amer) > 60 Glucose 97 Calcium 7.8 L Magnesium 2.0 Total Bilirubin 2.3 H AST 126 H Alkaline Phosphatase 95 Total Protein 4.9 L Albumin 2.8 L Triglycerides 330 H 02/06/20 09:55 Troponin I 0.107 Impressions: Abdomen/Pelvis CT 02/06/20 10:15 IMPRESSION: 1. Patient is now postoperative, status post recent cholecystectomy. This likely explains minimal free air in the abdomen and mild ascites. 2. There is considerable fluid distention of the distal esophagus, stomach and proximal small bowel however. Although ileus is in the differential, appearance is highly concerning for proximal true obstruction. KUB X-Ray 02/09/20 00:00 IMPRESSION: NO RADIOGRAPHIC EVIDENCE FOR ACUTE ABDOMINAL DISEASE. Chest X-Ray 02/10/20 11:32 IMPRESSION: 1. SATISFACTORY POSITION OF THE CENTRAL LINE. NO PNEUMOTHORAX. 2. PATCHY DENSITY IN THE LEFT LUNG BASE AND SMALL PLEURAL EFFUSIONS, UNCHANGED. Assessment and Plan - Plan Summary Summary: 55 yo man who underwent a lap aurelia at [place] about a week ago. He felt well for about a day then became anorexic with abd pain and was not eating or drinking much after. He presented to the ED with hypovolemic shock, lactic acid of 6, renal dysfunction and a CT initially suggestive of a high grade duodenal SBO with a very distended stomach. SBO seems to have resolved but hospital course has been complicated by ongoing ileus. Ileus: he was decompressed with NGT, surgery was consulted, and he was managed conservatively. NGT was clamped on 02/07 and diet was advanced on 02/08 to CLD, which he did not tolerate. His NGT is back on LIS. Discussed with Dr. Elkins who will re-evaluate today. Pre-Renal BISMARK: improving with aggressive IVF hydration Hypokalemia: due to GI losses, repleted. Hypovolemic Shock: Resolved. He was admitted to the ICU initially and aggressively hydrated. Nutrition: Central line placed by Dr. Elkins on 02/10/2020. Pharmacy consulted for TPN dosing, to start this evening. - Time Time Spent with patient: 35 or more minutes Anticipated Discharge Disposition: Home, Self Care Anticipated Discharge Timeframe: within 72 hours
[2020-02-10] MEDS: PRIMIDONE 250 MG TABLET PO SCH (21:33)
--- NOTE | 2020-02-11 00:13 | Operative Report ---
Operative Report DATE OF SURGERY: 02/10/20 PREOPERATIVE DIAGNOSIS: Prolonged ileus and needed access line for TPN POSTOPERATIVE DIAGNOSIS: Same OPERATION: Placement of right internal jugular vein triple-lumen catheter under ultrasound guidance SURGEON: ARCHANA ALMANZA ANESTHESIA: Local TISSUE REMOVED OR ALTERED: None COMPLICATIONS: None ESTIMATED BLOOD LOSS: 5 cc QUANTITATIVE BLOOD LOSS: 5 INTRAOPERATIVE FINDINGS: Normal internal jugular vein on ultrasound PROCEDURE: After informed consent obtained patient was placed in slight Trendelenburg position and the right neck prepped and draped in the usual sterile fashion. With the use of the ultrasound the right internal jugular vein was then identified and noted to be of fairly good size normal in caliber. Next local anesthesia infiltrated over the skin and skin was then punctured and the internal jugular vein aspirated with dark blood. Also in the syringe was disconnected there was no pulsatile flow. The guidewire was then passed through the needle towards the superior vena cava and the needle removed. The puncture site enlarged with a 11 blade and dilated. A triple-lumen catheter was inserted through the guidewire to a distance of about 17 cm. All the 3 ports aspirated blood easily and instilled saline easily. The catheter was then anchored to the skin with 3-0 silk and Biopatch placed at the insertion site. Transparent sterile dressing placed over the Biopatch and catheter. Chest x-ray will be obtained for placement and to rule out any pneumothorax.
[2020-02-11] MEDS: HYDROMORPHONE HCL INJ/PF 2 MG/ML AMPULE IV PRN ×7 (00:59→20:48)
[2020-02-11] MEDS: POTASSI CL 20 MEQ/1/2NS 1L 20 MEQ/1,000 ML RTUINJ IV PRN ×2 (01:23→11:31)
[2020-02-11] MEDS: ONDANSETRON HCL INJ/PF 4 MG/2 ML SDV IV PRN ×3 (03:28→19:31)
[2020-02-11 05:55] LABS: ALBUMIN 2.5 g/dL (3.5-5.0); ALKALINE PHOSPHATASE 101 U/L (38-126); ANION GAP 8 (5-19); ASPARTATE AMINO TRANSFERASE 102 U/L (17-59); BILIRUBIN,DIRECT 1.3 mg/dL (0.0-0.4); BILIRUBIN,TOTAL 2.2 mg/dL (0.2-1.3); BLOOD UREA NITROGEN 20 mg/dL (7-20); CALCIUM 7.6 mg/dL (8.4-10.2); CARBON DIOXIDE 29 mmol/L (22-30); CHLORIDE 101 mmol/L (98-107); GLUCOSE 114 mg/dL (75-110); PHOSPHORUS 2.2 mg/dL (2.5-4.5); POTASSIUM 3.8 mmol/L (3.6-5.0)
[2020-02-11 06:02] LABS: PREALBUMIN 8.8 mg/dL (17.6-36.0)
[2020-02-11] MEDS: INSULIN REG, HUMAN 100 UNIT/ML 3 ML VIAL (PYX) SUBCUT SCH ×2 (07:42→13:36)
[2020-02-11] MEDS: ENOXAPARIN SODIUM INJ 40 MG/0.4 ML DISP.SYRIN SUBCUT SCH (09:08)
--- NOTE | 2020-02-11 14:21 | PDOC PROGRESS REPORT ---
Subjective Progress Note for:: 02/11/20 Subjective:: patient stooling, passing gas, drinking a fair amount of water all aspirated with the NGT Reason For Visit: ST, DEHYDRATION, POSSIBLE HIGH GRADE SBO Physical Exam Vital Signs: Temp Pulse Resp BP Pulse Ox 99.5 F 98 18 156/84 H 93 02/11/20 08:22 02/11/20 08:22 02/11/20 08:22 02/11/20 08:22 02/11/20 08:22 Intake & Output 02/10/20 02/11/20 02/12/20 06:59 06:59 06:59 Intake Total 2693 1328 1000 Output Total 20990 Balance 593 -722 1000 Weight 90.1 kg 92.3 kg General appearance: PRESENT: no acute distress, obese GI/Abdominal exam: PRESENT: soft, other - not distended and not tender, all lap aurelia wounds have subcutaneous echimosis Results Laboratory Results: 02/10/20 09:47 02/11/20 04:35 02/11/20 04:35 Sodium 137.5 Potassium 3.8 Chloride 101 Carbon Dioxide 29 Anion Gap 8 BUN 20 Creatinine 0.84 Est GFR ( Amer) > 60 Glucose 114 H Calcium 7.6 L Phosphorus 2.2 L Total Bilirubin 2.2 H AST 102 H Alkaline Phosphatase 101 Total Protein 5.0 L Albumin 2.5 L Prealbumin 8.8 L 02/06/20 10:18 Blood Blood Culture - Final NO GROWTH IN 5 DAYS 02/06/20 09:55 Blood Blood Culture - Final NO GROWTH IN 5 DAYS 02/06/20 09:55 Troponin I 0.107 Impressions: Abdomen/Pelvis CT 02/06/20 10:15 IMPRESSION: 1. Patient is now postoperative, status post recent cholecystectomy. This likely explains minimal free air in the abdomen and mild ascites. 2. There is considerable fluid distention of the distal esophagus, stomach and proximal small bowel however. Although ileus is in the differential, appearance is highly concerning for proximal true obstruction. KUB X-Ray 02/09/20 00:00 IMPRESSION: NO RADIOGRAPHIC EVIDENCE FOR ACUTE ABDOMINAL DISEASE. Chest X-Ray 02/10/20 11:32 IMPRESSION: 1. SATISFACTORY POSITION OF THE CENTRAL LINE. NO PNEUMOTHORAX. 2. PATCHY DENSITY IN THE LEFT LUNG BASE AND SMALL PLEURAL EFFUSIONS, UNCHANGED. Assessment & Plan - Diagnosis (1) Adynamic ileus Is this a current diagnosis for this admission?: Yes (2) BISMARK (acute kidney injury) Is this a current diagnosis for this admission?: Yes - Time Anticipated Discharge Disposition: as er PCP Anticipated Discharge Timeframe: as per PCP - Plan Summary Plan Summary: A/ POstop after lap aurelia, discharged on 02/06/20 Patient adynamic ileus as resolved: stools x 4 last night, 1 stools tofday with flatus Adynamic ileus most likely secondary to septic event/dehydration large NGT output as the patient is drinking water P/ remove NGT advance diet to full liquid diet tonight up to soft mechanical in AM I will sign off. Call me with questions.
[2020-02-11] MEDS ORDERED: INSULIN REG, HUMAN 100 UNIT/ML 3 ML VIAL (PYX) SUBCUT PRN (16:20)
[2020-02-11] MEDS: AMINO ACIDS 5 %/DEXTROSE 20 % 1,000 ML IV PRN (17:44)
--- NOTE | 2020-02-11 18:19 | PDOC PROGRESS REPORT ---
Subjective Progress Note for:: 02/11/20 Subjective:: Had multiple BM yesterday. Feeling well today. Denies nausea or abd pain. NGT output slowed. Reason For Visit: ST, DEHYDRATION, POSSIBLE HIGH GRADE SBO Physical Exam Vital Signs: Temp Pulse Resp BP Pulse Ox 99.5 F 110 H 18 156/84 H 93 02/11/20 08:22 02/11/20 14:00 02/11/20 08:22 02/11/20 08:22 02/11/20 08:22 Intake & Output 02/10/20 02/11/20 02/12/20 06:59 06:59 06:59 Intake Total 2693 1328 1000 Output Total 2099 2049 Balance 593 -722 1000 Weight 90.1 kg 92.3 kg Additional comments: General: well-appearing elderly man, sitting up in chair, conversive Head: normocephalic, atraumatic Eyes: anicteric sclera ENT: moist mucus memranes, no oropharyngeal erythema/exudate Neck: +R IJ central line (placed 02/09) Lungs: CTAB Heart: RRR, no murmurs/rubs/gallops Abdomen: + but slow bowel sounds, distended but soft, no TTP, no rebound/guarding : no CVA tenderness, no suprapubic tenderness Extremities: warm and well perfused Vascular: 2+ peripheral pulses in all extremities Neuro: A&Ox3 Skin: no rash Results Laboratory Results: 02/10/20 09:47 02/11/20 04:35 02/11/20 04:35 Sodium 137.5 Potassium 3.8 Chloride 101 Carbon Dioxide 29 Anion Gap 8 BUN 20 Creatinine 0.84 Est GFR ( Amer) > 60 Glucose 114 H Calcium 7.6 L Phosphorus 2.2 L Total Bilirubin 2.2 H AST 102 H Alkaline Phosphatase 101 Total Protein 5.0 L Albumin 2.5 L Prealbumin 8.8 L 02/06/20 10:18 Blood Blood Culture - Final NO GROWTH IN 5 DAYS 02/06/20 09:55 Blood Blood Culture - Final NO GROWTH IN 5 DAYS 02/06/20 09:55 Troponin I 0.107 Impressions: Abdomen/Pelvis CT 02/06/20 10:15 IMPRESSION: 1. Patient is now postoperative, status post recent cholecystectomy. This likely explains minimal free air in the abdomen and mild ascites. 2. There is considerable fluid distention of the distal esophagus, stomach and proximal small bowel however. Although ileus is in the differential, appearance is highly concerning for proximal true obstruction. KUB X-Ray 02/09/20 00:00 IMPRESSION: NO RADIOGRAPHIC EVIDENCE FOR ACUTE ABDOMINAL DISEASE. Chest X-Ray 02/10/20 11:32 IMPRESSION: 1. SATISFACTORY POSITION OF THE CENTRAL LINE. NO PNEUMOTHORAX. 2. PATCHY DENSITY IN THE LEFT LUNG BASE AND SMALL PLEURAL EFFUSIONS, UNCHANGED. Assessment and Plan - Plan Summary Summary: 55 yo man who underwent a lap aurelia at [facility] about a week ago. He felt well for about a day then became anorexic with abd pain and was not eating or drinking much after. He presented to the ED with hypovolemic shock, lactic acid of 6, renal dysfunction and a CT initially suggestive of a high grade duodenal SBO with a very distended stomach. SBO seems to have resolved but hospital course has been complicated by ongoing ileus. Ileus: he was decompressed with NGT, surgery was consulted, and he was managed conservatively. NGT was clamped on 02/07 and diet was advanced on to CLD, which he did not tolerate, so he was placed back on NGT with LIS on 02/09. - per surgery, remove NGT today and start CLD, then advance to soft mechanical diet as tolerated Pre-Renal BISMAKR: resolved with aggressive IVF hydration Hypokalemia: due to GI losses, repleted Hypovolemic Shock: Resolved. He was admitted to the ICU initially and aggressively hydrated. Nutrition: Central line placed by Dr. Elkins on 02/10/2020. Pharmacy consulted for TPN dosing, which began on 02/09. DVT ppx: Lovenox - Time Time Spent with patient: 35 or more minutes Anticipated Discharge Disposition: Home, Self Care Anticipated Discharge Timeframe: within 48 hours
[2020-02-11] MEDS: PRIMIDONE 250 MG TABLET PO SCH (22:39)
[2020-02-12] MEDS: HYDROMORPHONE HCL INJ/PF 2 MG/ML AMPULE IV PRN ×8 (01:07→23:24)
[2020-02-12] MEDS: ONDANSETRON HCL INJ/PF 4 MG/2 ML SDV IV PRN ×3 (03:43→20:24)
[2020-02-12 08:19] LABS: ALBUMIN 2.4 g/dL (3.5-5.0); ALKALINE PHOSPHATASE 116 U/L (38-126); ANION GAP 8 (5-19); ASPARTATE AMINO TRANSFERASE 79 U/L (17-59); BILIRUBIN,DIRECT 1.2 mg/dL (0.0-0.4); BILIRUBIN,TOTAL 1.8 mg/dL (0.2-1.3); BLOOD UREA NITROGEN 14 mg/dL (7-20); CALCIUM 7.5 mg/dL (8.4-10.2); CARBON DIOXIDE 28 mmol/L (22-30); CHLORIDE 100 mmol/L (98-107); GLUCOSE 109 mg/dL (75-110); POTASSIUM 3.8 mmol/L (3.6-5.0); TOTAL PROTEIN 5.1 g/dL (6.3-8.2)
[2020-02-12 08:51] LABS: PHOSPHORUS 2.6 mg/dL (2.5-4.5)
[2020-02-12 08:57] LABS: PREALBUMIN 10.4 mg/dL (17.6-36.0)
[2020-02-12] MEDS: ENOXAPARIN SODIUM INJ 40 MG/0.4 ML DISP.SYRIN SUBCUT SCH (09:51)
--- NOTE | 2020-02-12 11:05 | PDOC PROGRESS REPORT ---
Subjective Progress Note for:: 02/12/20 Subjective:: Still receiving TPN. States that he is starting to improve with oral liquids. Reports having loose stools. Reason For Visit: ST, DEHYDRATION, POSSIBLE HIGH GRADE SBO Physical Exam Vital Signs: Temp Pulse Resp BP Pulse Ox 98.2 F 111 H 16 138/94 H 94 02/12/20 08:00 02/12/20 08:00 02/12/20 08:00 02/12/20 08:00 02/12/20 08:00 Intake & Output 02/11/20 02/12/20 02/13/20 06:59 06:59 06:59 Intake Total 1328 3327 Output Total 2050 2250 Balance -722 1077 Weight 92.3 kg 91.2 kg General appearance: PRESENT: cooperative, mild distress, well-developed Head exam: PRESENT: atraumatic, normocephalic Ear exam: PRESENT: normal external ear exam. ABSENT: bleeding, drainage Respiratory exam: PRESENT: clear to auscultation demar, symmetrical, unlabored. ABSENT: rales, rhonchi, tachypnea, wheezes Cardiovascular exam: PRESENT: RRR, +S1, +S2, tachycardia GI/Abdominal exam: PRESENT: distended, soft, tenderness, other - Tympanitic Rectal exam: PRESENT: deferred Extremities exam: ABSENT: pedal edema Neurological exam: PRESENT: alert, awake, oriented to person, oriented to place, oriented to time, oriented to situation, CN II-XII grossly intact. ABSENT: altered Psychiatric exam: PRESENT: appropriate affect. ABSENT: agitated, anxious Focused psych exam: ABSENT: delusional, paranoid, restlessness Skin exam: PRESENT: other - Ecchymosis on abdomen Results Laboratory Results: 02/10/20 09:47 02/12/20 06:20 02/12/20 02/12/20 06:20 06:20 Sodium 135.9 L Potassium 3.8 Chloride 100 Carbon Dioxide 28 Anion Gap 8 BUN 14 Creatinine 0.75 Est GFR ( Amer) > 60 Glucose 109 Calcium 7.5 L Phosphorus 2.6 Total Bilirubin 1.8 H AST 79 H Alkaline Phosphatase 116 Total Protein 5.1 L Albumin 2.4 L Prealbumin 10.4 L 02/06/20 10:18 Blood Blood Culture - Final NO GROWTH IN 5 DAYS 02/06/20 09:55 Blood Blood Culture - Final NO GROWTH IN 5 DAYS 02/06/20 09:55 Troponin I 0.107 Impressions: Abdomen/Pelvis CT 02/06/20 10:15 IMPRESSION: 1. Patient is now postoperative, status post recent cholecystectomy. This likely explains minimal free air in the abdomen and mild ascites. 2. There is considerable fluid distention of the distal esophagus, stomach and proximal small bowel however. Although ileus is in the differential, appearance is highly concerning for proximal true obstruction. KUB X-Ray 02/09/20 00:00 IMPRESSION: NO RADIOGRAPHIC EVIDENCE FOR ACUTE ABDOMINAL DISEASE. Chest X-Ray 02/10/20 11:32 IMPRESSION: 1. SATISFACTORY POSITION OF THE CENTRAL LINE. NO PNEUMOTHORAX. 2. PATCHY DENSITY IN THE LEFT LUNG BASE AND SMALL PLEURAL EFFUSIONS, UNCHANGED. Assessment and Plan - Diagnosis (1) Ileus following lap aurelia Is this a current diagnosis for this admission?: Yes Plan: The patient has a tray of clear liquids at the bedside. He states he has been trying to take some liquids by mouth. He is still on TPN. He states that he still gets nauseated and has been noticing loose stool. The ileus is resolving. He was decompressed with a nasogastric tube. We are slowly advancing his diet. (2) BISMARK (acute kidney injury) Is this a current diagnosis for this admission?: Yes Plan: Resolved with IV fluids. Continue to monitor renal function. (3) Hypokalemia Is this a current diagnosis for this admission?: Yes Plan: Serum potassium currently normal. Monitoring laboratory studies with adjustments in TPN daily. Continue routine laboratory studies for TPN therapy. (4) Hypovolemic shock Is this a current diagnosis for this admission?: Yes Plan: Resolved with IV fluids (5) Malnutrition following gastrointestinal surgery Is this a current diagnosis for this admission?: Yes Plan: Currently on TPN. We will try and advance clear liquid diet. The next up will be full liquids. Once he is taking adequate oral intake we can discontinue the TPN and discharged home. - Plan Summary Summary: 55 yo man who underwent a lap aurelia at [place] about a week ago. He felt well for about a day then became anorexic with abd pain and was not eating or drinking much after. He presented to the ED with hypovolemic shock, lactic acid of 6, renal dysfunction and a CT initially suggestive of a high grade duodenal SBO with a very distended stomach. SBO seems to have resolved but hospital course has been complicated by ongoing ileus. Ileus: he was decompressed with NGT, surgery was consulted, and he was managed conservatively. NGT was clamped on 02/07 and diet was advanced on to CLD, which he did not tolerate, so he was placed back on NGT with LIS on 02/09. - per surgery, remove NGT today and start CLD, then advance to soft mechanical diet as tolerated Pre-Renal BISMARK: resolved with aggressive IVF hydration Hypokalemia: due to GI losses, repleted Hypovolemic Shock: Resolved. He was admitted to the ICU initially and aggressively hydrated. Nutrition: Central line placed by Dr. Elkins on 02/10/2020. Pharmacy consulted for TPN dosing, which began on 02/09. DVT ppx: Lovenox - Time Time Spent with patient: 15-24 minutes Medications reviewed and adjusted accordingly: Yes Anticipated Discharge Disposition: Home with Home Health Anticipated Discharge Timeframe: within 72 hours
[2020-02-12] MEDS: METOPROLOL TARTRATE PF/INJ 5 MG/5 ML SDV IV PRN (13:20)
[2020-02-12] MEDS: CHLORHEXIDINE GLUCONATE 0.12% ORAL RINSE 15 ML UDC MM SCH (17:12)
--- NOTE | 2020-02-12 17:46 | RADIOLOGY REPORT (SQ) ---
EXAM DESCRIPTION: KUB/ABDOMEN (SINGLE VIEW) IMAGES COMPLETED DATE/TIME: 02/12/2020 2:19 pm REASON FOR STUDY: Ileus COMPARISON: 02/09/2020 NUMBER OF VIEWS: One view. TECHNIQUE: Supine radiographic image of the abdomen acquired. LIMITATIONS: None. FINDINGS: BOWEL GAS PATTERN: Dilated stacked gas-filled loops of small bowel are again demonstrated in the left upper abdomen. Patchy bowel gas in the mid to distal colon. CALCIFICATIONS: No suspicious calcifications. SOFT TISSUES: No gross mass or suggestion of organomegaly. HARDWARE: None in the abdomen. BONES: No acute fracture. No worrisome bone lesions. OTHER: No other significant finding. IMPRESSION: Persistent gas-filled loops of small bowel with patchy bowel gas in the distal colon, no t significantly changed. Finding may represent ileus or bowel obstruction. Clinical correlation and continued follow-up recommended. TECHNICAL DOCUMENTATION: JOB ID: [id number] 2010 [email or web address]- All Rights Reserved Reading location - IP/workstation name: [email or web address]
[2020-02-12] MEDS: AMINO ACIDS 5 %/DEXTROSE 20 % 1,000 ML IV PRN ×2 (18:10→19:05)
[2020-02-12] MEDS: PRIMIDONE 250 MG TABLET PO SCH (22:44)
[2020-02-13] MEDS: HYDROMORPHONE HCL INJ/PF 2 MG/ML AMPULE IV PRN ×7 (02:28→22:06)
[2020-02-13] MEDS: ONDANSETRON HCL INJ/PF 4 MG/2 ML SDV IV PRN ×3 (04:41→20:39)
[2020-02-13 08:04] LABS: HEMATOCRIT 25.3 % (37.9-51.0); HEMOGLOBIN 8.6 g/dL (13.5-17.0); MEAN CORPUSCULAR HEMOGLOBIN 28.7 pg (27.0-33.4); MEAN CORPUSCULAR HGB CONC 33.8 g/dL (32.0-36.0); MEAN CORPUSCULAR VOLUME 85 fl (80-97); PLATELET COUNT 338 10^3/uL (150-450); RED BLOOD COUNT 2.98 10^6/uL (4.35-5.55); RED CELL DISTRIBUTION WIDTH 15.7 % (11.5-14.0); WHITE BLOOD COUNT 7.5 10^3/uL (4.0-10.5)
[2020-02-13 08:34] LABS: ALBUMIN 2.5 g/dL (3.5-5.0); ALKALINE PHOSPHATASE 149 U/L (38-126); ANION GAP 6 (5-19); ASPARTATE AMINO TRANSFERASE 67 U/L (17-59); BILIRUBIN,DIRECT 1.2 mg/dL (0.0-0.4); BILIRUBIN,TOTAL 1.7 mg/dL (0.2-1.3); BLOOD UREA NITROGEN 13 mg/dL (7-20); CALCIUM 7.5 mg/dL (8.4-10.2); CARBON DIOXIDE 29 mmol/L (22-30); CHLORIDE 101 mmol/L (98-107); GLUCOSE 94 mg/dL (75-110); POTASSIUM 3.8 mmol/L (3.6-5.0); TOTAL PROTEIN 5.4 g/dL (6.3-8.2)
[2020-02-13 09:56] LABS: INTERNATIONAL RATION (INR) 1.14
[2020-02-13 09:58] LABS: PROTHROMBIN TIME 14.8 SEC (11.4-15.4)
[2020-02-13] MEDS ORDERED: FAT EMULSIONS 250 ML IV SCH (10:00)
[2020-02-13 10:04] LABS: PHOSPHORUS 2.6 mg/dL (2.5-4.5)
[2020-02-13 10:12] LABS: PREALBUMIN 12.9 mg/dL (17.6-36.0)
[2020-02-13] MEDS: ENOXAPARIN SODIUM INJ 40 MG/0.4 ML DISP.SYRIN SUBCUT SCH (10:14)
[2020-02-13] MEDS: CHLORHEXIDINE GLUCONATE 0.12% ORAL RINSE 15 ML UDC MM SCH ×2 (10:14→17:38)
--- NOTE | 2020-02-13 12:54 | PDOC PROGRESS REPORT ---
Subjective Progress Note for:: 02/13/20 Subjective:: Miguelito Lebron is a 55/M, PMH of HTN, HLD who was admitted from the ED to the ICU February 06, 2020 due to abdominal pain. He underwent laparoscopic cholecystectomy at [facility] a week before his admission here. He felt well for about a day then has been anorexic with some abd pain and not eating or drinking much since. He comes to the ED at [place] with severe dehydration, lactic acid of 6, renal dysfunction and a CT that is suggestive of a high grade duodenal SBO with a very distended stomach. He also has sinus tachycardia to 150. He was started on aggressive hydration due to dehydration and hypovolemic shock. Surgery was consulted for the small bowel obstruction seen on the CT scan. NG tube was placed he was managed conservatively. His lactic acidosis has resolved on the second day he continued to have high output from the NG tube. IV fluids were continued. He was transferred out of the ICU February 09, 2020. He was trialed on a clear liquid that they but he was unable to tolerate so NGT was put back to low intermittent suction. Chest x-ray done on February 08 showed bilateral pleural effusion, IVF was discontinued. He was able to have a bowel movement February 08. He was started on TPN after placing a central line February 10, 2020. He tolerated clear liquids on the subsequent days. He was seen and examined at bedside today. Complains of abdominal pain about 6 out of 10 but no nausea or vomiting. He was able to have a bowel movement today.. Afebrile. WBC count 7.5. Nutrition was advanced to general diet Dr. Loaiza. Continue TPN. Reason For Visit: ST, DEHYDRATION, POSSIBLE HIGH GRADE SBO Physical Exam Vital Signs: Temp Pulse Resp BP Pulse Ox 99.0 F 105 H 20 143/93 H 110 H 02/13/20 08:00 02/13/20 07:00 02/13/20 08:00 02/13/20 08:00 02/13/20 08:00 Intake & Output 02/12/20 02/13/20 02/14/20 06:59 06:59 06:59 Intake Total 3327 360 Output Total 2250 1475 Balance 1077 -1115 Weight 91.2 kg 91 kg General appearance: PRESENT: no acute distress, cooperative Head exam: PRESENT: atraumatic, normocephalic Eye exam: PRESENT: EOMI, PERRLA Mouth exam: PRESENT: moist Neck exam: PRESENT: full ROM Respiratory exam: PRESENT: rales, symmetrical, unlabored Cardiovascular exam: PRESENT: RRR, +S1, +S2 Pulses: PRESENT: normal radial pulses GI/Abdominal exam: PRESENT: diminished bowel sounds, distended, soft, other - Noted hematoma on suprapubic area about 10 cm long. ABSENT: guarding, rebound Extremities exam: PRESENT: full ROM Musculoskeletal exam: PRESENT: full ROM Neurological exam: PRESENT: alert, awake, oriented to person, oriented to place, oriented to time Psychiatric exam: PRESENT: normal mood Skin exam: PRESENT: normal color Results Laboratory Results: 02/13/20 06:40 02/13/20 06:40 02/13/20 02/13/20 02/13/20 06:40 06:40 06:40 WBC 7.5 RBC 2.98 L Hgb 8.6 L Hct 25.3 L MCV 85 MCH 28.7 MCHC 33.8 RDW 15.7 H Plt Count 338 Sodium 136.0 L Potassium 3.8 Chloride 101 Carbon Dioxide 29 Anion Gap 6 BUN 13 Creatinine 0.61 Est GFR ( Amer) > 60 Glucose 94 Calcium 7.5 L Phosphorus Magnesium 1.6 Total Bilirubin 1.7 H AST 67 H Alkaline Phosphatase 149 H Total Protein 5.4 L Albumin 2.5 L Prealbumin Triglycerides 140 02/13/20 02/13/20 09:07 09:07 WBC RBC Hgb Hct MCV MCH MCHC RDW Plt Count Sodium Potassium Chloride Carbon Dioxide Anion Gap BUN Creatinine Est GFR ( Amer) Glucose Calcium Phosphorus 2.6 Magnesium Total Bilirubin AST Alkaline Phosphatase Total Protein Albumin Prealbumin 12.9 L Triglycerides 147 02/06/20 09:55 Troponin I 0.107 Impressions: Abdomen/Pelvis CT 02/06/20 10:15 IMPRESSION: 1. Patient is now postoperative, status post recent cholecystectomy. This likely explains minimal free air in the abdomen and mild ascites. 2. There is considerable fluid distention of the distal esophagus, stomach and proximal small bowel however. Although ileus is in the differential, appearance is highly concerning for proximal true obstruction. Chest X-Ray 02/10/20 11:32 IMPRESSION: 1. SATISFACTORY POSITION OF THE CENTRAL LINE. NO PNEUMOTHORAX. 2. PATCHY DENSITY IN THE LEFT LUNG BASE AND SMALL PLEURAL EFFUSIONS, UNCHANGED. KUB X-Ray 02/12/20 00:00 IMPRESSION: Persistent gas-filled loops of small bowel with patchy bowel gas in the distal colon, not significantly changed. Finding may represent ileus or bowel obstruction. Clinical correlation and continued follow-up recommended. Assessment and Plan - Diagnosis (1) Ileus following lap aurelia Is this a current diagnosis for this admission?: Yes Plan: - managed conservatively - NG tube out - +ve BM today, passing gas - Bowel still distended but the patient said its about the same, hypoactive bowel sounds - on TPN via central line for nutrition - Diet advanced to general today. (2) BISMARK (acute kidney injury) Is this a current diagnosis for this admission?: Yes Plan: - Resolved - off IV fluids - Crea 2.56>0.61 - UO 1.8L x 24 hrs - CTM (3) Lactic acid acidosis Is this a current diagnosis for this admission?: Yes Plan: Resolved (4) Hypovolemic shock Is this a current diagnosis for this admission?: Yes Plan: - BP stable 143/93 (5) Physical deconditioning Is this a current diagnosis for this admission?: Yes Plan: - PT/OT ordered to assess needs (6) Malnutrition following gastrointestinal surgery Is this a current diagnosis for this admission?: Yes Plan: - On TPN since 02/09 due to ileus following a lap aurelia - diet advance to general and monitor for intolerance - not on NG tube DVT ppx: Lovenox - Plan Summary Summary: 55 yo man who underwent a lap aurelia at [facility] about a week ago. He felt well for about a day then became anorexic with abd pain and was not eating or drinking much after. He presented to the ED with hypovolemic shock, lactic acid of 6, renal dysfunction and a CT initially suggestive of a high grade duodenal SBO with a very distended stomach. SBO seems to have resolved but hospital course has been complicated by ongoing ileus. Ileus: he was decompressed with NGT, surgery was consulted, and he was managed conservatively. NGT was clamped on 02/07 and diet was advanced on to CLD, which he did not tolerate, so he was placed back on NGT with LIS on 02/09. - per surgery, remove NGT today and start CLD, then advance to soft mechanical diet as tolerated Pre-Renal BISMARK: resolved with aggressive IVF hydration Hypokalemia: due to GI losses, repleted Hypovolemic Shock: Resolved. He was admitted to the ICU initially and aggressively hydrated. Nutrition: Central line placed by Dr. Elkins on 02/10/2020. Pharmacy consulted for TPN dosing, which began on 02/09. DVT ppx: Lovenox - Time Time Spent with patient: 15-24 minutes Anticipated Discharge Disposition: Home, Self Care Anticipated Discharge Timeframe: to be determined
[2020-02-13] MEDS: METOPROLOL TARTRATE PF/INJ 5 MG/5 ML SDV IV PRN ×2 (14:14→22:10)
[2020-02-13] MEDS ORDERED: DIPHENHYDRAMINE HCL 50 MG/ML VIAL IV ONE (16:30)
[2020-02-13] MEDS ORDERED: METOCLOPRAMIDE HCL INJ/PF 10 MG/2 ML SDV IV ONE (16:30)
[2020-02-13] MEDS ORDERED: LIDOCAINE 2% VISCOUS SOLN 15 ML UDCUP PO PRN (18:18)
[2020-02-13] MEDS: AMINO ACIDS 5 %/DEXTROSE 20 % 1,000 ML IV PRN (18:43)
[2020-02-13 20:26] LABS: CHOLESTEROL 80.86 mg/dL (0-200); TRIGLYCERIDES 117 mg/dL (<150)
[2020-02-13 20:37] LABS: DIRECT LDL 42 mg/dL (<100)
[2020-02-13] MEDS: PRIMIDONE 250 MG TABLET PO SCH (22:09)
[2020-02-14] MEDS: HYDROMORPHONE HCL INJ/PF 2 MG/ML AMPULE IV PRN ×2 (01:49→05:07)
[2020-02-14] MEDS: ONDANSETRON HCL INJ/PF 4 MG/2 ML SDV IV PRN ×3 (03:11→18:52)
[2020-02-14] MEDS ORDERED: HYDROMORPHONE HCL INJ/PF 2 MG/ML AMPULE IV ONE (09:30)
[2020-02-14] MEDS: MORPHINE SULFATE SR 15 MG TABLET PO SCH ×2 (12:49→23:34)
[2020-02-14] MEDS: ATENOLOL 50 MG TABLET PO SCH (12:50)
[2020-02-14] MEDS: AMANTADINE HCL 100 MG CAPSULE PO SCH ×2 (12:58→18:29)
[2020-02-14] MEDS: ENOXAPARIN SODIUM INJ 40 MG/0.4 ML DISP.SYRIN SUBCUT SCH (12:58)
[2020-02-14] MEDS: CHLORHEXIDINE GLUCONATE 0.12% ORAL RINSE 15 ML UDC MM SCH ×3 (12:58→18:29)
[2020-02-14] MEDS: OXYCODONE-ACETAMINOPHEN 5-325 MG TABLET PO PRN ×2 (16:02→20:17)
--- NOTE | 2020-02-14 16:24 | PDOC PROGRESS REPORT ---
Subjective Progress Note for:: 02/14/20 Subjective:: Concerned about multiple (7-8) episodes of diarrhea daily and ongoing abdominal discomfort. Denies fevers/chills. Reason For Visit: ST, DEHYDRATION, POSSIBLE HIGH GRADE SBO Physical Exam Vital Signs: Temp Pulse Resp BP Pulse Ox 98.9 F 115 H 16 144/96 H 98 02/14/20 07:55 02/14/20 07:55 02/14/20 07:55 02/14/20 07:55 02/14/20 07:55 Intake & Output 02/13/20 02/14/20 02/15/20 06:59 06:59 06:59 Intake Total 360 1200 460 Output Total 1475 1100 600 Balance -1115 100 -140 Weight 91 kg 83.3 kg General appearance: PRESENT: no acute distress Eye exam: ABSENT: scleral icterus Mouth exam: PRESENT: moist Neck exam: ABSENT: JVD Respiratory exam: PRESENT: clear to auscultation demar Cardiovascular exam: PRESENT: RRR GI/Abdominal exam: PRESENT: distended, normal bowel sounds, soft. ABSENT: ascites, guarding, mass, rebound, rigid, tenderness Rectal exam: PRESENT: deferred Extremities exam: ABSENT: pedal edema, tenderness Musculoskeletal exam: PRESENT: ambulatory Neurological exam: PRESENT: alert, oriented to person, oriented to place, oriented to time, oriented to situation Psychiatric exam: PRESENT: anxious Skin exam: ABSENT: rash Results Laboratory Results: 02/13/20 06:40 02/13/20 06:40 02/13/20 19:50 Triglycerides 117 Cholesterol 80.86 LDL Cholesterol Direct 42 VLDL Cholesterol 23.0 HDL Cholesterol 17 L 02/06/20 09:55 Troponin I 0.107 Impressions: Abdomen/Pelvis CT 02/06/20 10:15 IMPRESSION: 1. Patient is now postoperative, status post recent cholecystectomy. This like ly explains minimal free air in the abdomen and mild ascites. 2. There is considerable fluid distention of the distal esophagus, stomach and proximal small bowel however. Although ileus is in the differential, appearance is highly concerning for proximal true obstruction. Chest X-Ray 02/10/20 11:32 IMPRESSION: 1. SATISFACTORY POSITION OF THE CENTRAL LINE. NO PNEUMOTHORAX. 2. PATCHY DENSITY IN THE LEFT LUNG BASE AND SMALL PLEURAL EFFUSIONS, UNCHANGED. KUB X-Ray 02/12/20 00:00 IMPRESSION: Persistent gas-filled loops of small bowel with patchy bowel gas in the distal colon, not significantly changed. Finding may represent ileus or bowel obstruction. Clinical correlation and continued follow-up recommended. Assessment and Plan - Plan Summary Summary: 55 yo man who underwent a lap aurelia at [place] about one week prior to admission. He felt well for about a day then became anorexic with abd pain and was not eating or drinking much after. He presented to the ED with hypovolemic shock, lactic acid of 6, renal dysfunction and a CT initially suggestive of a high grade duodenal SBO with a very distended stomach. SBO seems to have resolved but hospital course has been complicated by ongoing ileus. Ileus: he was decompressed with NGT, surgery was consulted, and he was managed conservatively. NGT was clamped on 02/07 and diet was advanced on to CLD, which he did not tolerate, so he was placed back on NGT with LIS on 02/09. NGT removed again on 02/10 and diet advanced to soft mechanical (which is his regular/home diet, as he can not tolerate swallowing anything else). Pre-Renal BISMARK: resolved with aggressive IVF hydration Hypokalemia: due to GI losses, repleted Hypovolemic Shock: Resolved. He was admitted to the ICU initially and aggressively hydrated. Nutrition: Central line placed by Dr. Elkins on 02/10/2020. Pharmacy consulted for TPN dosing, which began on 02/09. - plan to DC TPN today (02/13) given that he is now eating Diarrhea - check C diff DVT ppx: Lovenox - Time Time Spent with patient: 35 or more minutes Anticipated Discharge Disposition: Home with Home Health Anticipated Discharge Timeframe: within 48 hours
[2020-02-14 17:19] LABS: HEMOGLOBIN 8.9 g/dL (13.5-17.0); MEAN CORPUSCULAR HEMOGLOBIN 28.8 pg (27.0-33.4); MEAN CORPUSCULAR HGB CONC 34.3 g/dL (32.0-36.0); MEAN CORPUSCULAR VOLUME 84 fl (80-97); PLATELET COUNT 353 10^3/uL (150-450); RED BLOOD COUNT 3.09 10^6/uL (4.35-5.55); RED CELL DISTRIBUTION WIDTH 15.4 % (11.5-14.0); WHITE BLOOD COUNT 8.4 10^3/uL (4.0-10.5)
[2020-02-14 17:36] LABS: ANION GAP 8 (5-19); BLOOD UREA NITROGEN 13 mg/dL (7-20); CALCIUM 7.9 mg/dL (8.4-10.2); CARBON DIOXIDE 25 mmol/L (22-30); CHLORIDE 101 mmol/L (98-107); GLUCOSE 118 mg/dL (75-110); POTASSIUM 3.9 mmol/L (3.6-5.0)
[2020-02-14 19:42] LABS: C DIFFICILE GDH NEGATIVE (NEGATIVE)
[2020-02-14] MEDS: ATORVASTATIN CALCIUM 40 MG TABLET PO SCH (23:35)
[2020-02-14] MEDS: DIVALPROEX SODIUM 500 MG TAB.SR.24H PO SCH (23:38)
[2020-02-14] MEDS: PRIMIDONE 250 MG TABLET PO SCH (23:43)
[2020-02-15] MEDS: OXYCODONE-ACETAMINOPHEN 5-325 MG TABLET PO PRN ×2 (02:32→07:46)
[2020-02-15] MEDS: ONDANSETRON HCL INJ/PF 4 MG/2 ML SDV IV PRN ×4 (02:32→21:19)
[2020-02-15 07:00] LABS: HEMATOCRIT 24.6 % (37.9-51.0); HEMOGLOBIN 8.4 g/dL (13.5-17.0); MEAN CORPUSCULAR HEMOGLOBIN 29.1 pg (27.0-33.4); MEAN CORPUSCULAR HGB CONC 34.3 g/dL (32.0-36.0); MEAN CORPUSCULAR VOLUME 85 fl (80-97); PLATELET COUNT 364 10^3/uL (150-450); RED CELL DISTRIBUTION WIDTH 15.6 % (11.5-14.0); WHITE BLOOD COUNT 7.6 10^3/uL (4.0-10.5)
[2020-02-15 07:30] LABS: BLOOD UREA NITROGEN 13 mg/dL (7-20); CALCIUM 7.8 mg/dL (8.4-10.2); GLUCOSE 98 mg/dL (75-110)
[2020-02-15 07:36] LABS: ANION GAP 9 (5-19); CARBON DIOXIDE 25 mmol/L (22-30); CHLORIDE 102 mmol/L (98-107)
[2020-02-15] MEDS ORDERED: LOPERAMIDE HCL 2 MG CAPSULE PO PRN (08:54)
[2020-02-15] MEDS: ATENOLOL 50 MG TABLET PO SCH (09:31)
[2020-02-15] MEDS: MORPHINE SULFATE SR 15 MG TABLET PO SCH (09:32)
[2020-02-15] MEDS: AMANTADINE HCL 100 MG CAPSULE PO SCH ×2 (09:33→18:19)
[2020-02-15] MEDS: ENOXAPARIN SODIUM INJ 40 MG/0.4 ML DISP.SYRIN SUBCUT SCH (09:34)
[2020-02-15] MEDS ORDERED: NITROGLYCERIN 0.4 MG/TAB 25 TAB/BOTTLE SL ONE (10:40)
[2020-02-15] MEDS ORDERED: NITROGLYCERIN 0.4 MG/TAB 25 TAB/BOTTLE ONE (10:41)
[2020-02-15] MEDS ORDERED: MAGNESIUM SULFATE INJ 8 MEQ/2 ML IV ONE (10:41)
[2020-02-15] MEDS ORDERED: MAGNESIUM SULFATE/D5W 1 GM/100 ML RTUPB IV ONE (11:00)
[2020-02-15] MEDS: CHLORHEXIDINE GLUCONATE 0.12% ORAL RINSE 15 ML UDC MM SCH ×2 (11:15→18:33)
--- NOTE | 2020-02-15 11:19 | EKG REPORT ---
SEVERITY:- BORDERLINE ECG - SINUS RHYTHM BORDERLINE T ABNORMALITIES, ANTERIOR LEADS : Confirmed by: Alok Abdul MD 15-Feb-2020 11:18:12
--- NOTE | 2020-02-15 12:34 | RADIOLOGY REPORT (SQ) ---
EXAM DESCRIPTION: CHEST SINGLE VIEW IMAGES COMPLETED DATE/TIME: 02/15/2020 12:03 pm REASON FOR STUDY: chest pain, SOB COMPARISON: AP view of the chest from 02/10/2020 EXAM PARAMETERS: NUMBER OF VIEWS: One view. TECHNIQUE: An AP view of the chest was obtained. RADIATION DOSE: NA LIMITATIONS: None. FINDINGS: LUNGS AND PLEURA: Patchy bibasilar opacities that could represent atelectasis or pneumonia . MEDIASTINUM AND HILAR STRUCTURES: No mediastinal or hilar contour abnormality. HEART AND VASCULAR STRUCTURES: The cardiac silhouette and pulmonary vasculature are within normal fierro its. BONES: No acute findings. HARDWARE: The tip of the right IJ central venous catheter projects within the SVC. OTHER: No other finding. IMPRESSION: Patchy bibasilar opacities that could represent atelectasis or pneumonia. TECHNICAL DOCUMENTATION: JOB ID: [id number] 2010 [employer]- All Rights Reserved Reading location - IP/workstation name: [email or web address]
[2020-02-15] MEDS ORDERED: METOCLOPRAMIDE HCL INJ/PF 10 MG/2 ML SDV IV ONE (14:00)
[2020-02-15] MEDS ORDERED: HYDROMORPHONE HCL INJ/PF 2 MG/ML AMPULE IV ONE (14:00)
[2020-02-15] MEDS ORDERED: FUROSEMIDE INJ/PF 20 MG/2 ML SDV IV ONE (14:00)
[2020-02-15] MEDS: MORPHINE SULFATE 10 MG/5 ML ORAL SOLUTION UDCUP PO PRN ×2 (18:29→22:47)
[2020-02-15] MEDS ORDERED: SIMETHICONE 80 MG TAB.CHEW PO ONE (18:45)
--- NOTE | 2020-02-15 19:17 | PDOC PROGRESS REPORT ---
Subjective Progress Note for:: 02/15/20 Subjective:: He is no longer having diarrhea. In fact, he has not had a single BM today. He developed CP today which improved with Nitro SL. He is tolerating oral diet of soft foods. Reason For Visit: ST, DEHYDRATION, POSSIBLE HIGH GRADE SBO Physical Exam Vital Signs: Temp Pulse Resp BP Pulse Ox 98.2 F 91 17 133/78 H 99 02/15/20 18:25 02/15/20 18:25 02/15/20 18:25 02/15/20 18:25 02/15/20 18:25 Intake & Output 02/14/20 02/15/20 02/16/20 06:59 06:59 06:59 Intake Total 1200 1056 1608 Output Total 1100 2000 1000 Balance 100 -944 608 Weight 83.3 kg 84 kg 84 kg General appearance: PRESENT: no acute distress Eye exam: ABSENT: scleral icterus Mouth exam: PRESENT: moist Neck exam: ABSENT: JVD Respiratory exam: PRESENT: clear to auscultation demar, unlabored. ABSENT: accessory muscle use Cardiovascular exam: PRESENT: RRR GI/Abdominal exam: PRESENT: distended, normal bowel sounds, soft. ABSENT: guarding, rebound, rigid, tenderness Neurological exam: PRESENT: alert, awake, oriented to person, oriented to place, oriented to situation Psychiatric exam: PRESENT: anxious Skin exam: PRESENT: dry. ABSENT: rash Results Laboratory Results: 02/15/20 06:15 02/15/20 06:15 02/15/20 02/15/20 02/15/20 06:15 06:15 06:15 WBC 7.6 RBC 2.90 L Hgb 8.4 L Hct 24.6 L MCV 85 MCH 29.1 MCHC 34.3 RDW 15.6 H Plt Count 364 Sodium 135.9 L Potassium 4.0 Chloride 102 Carbon Dioxide 25 Anion Gap 9 BUN 13 Creatinine 0.66 Est GFR ( Amer) > 60 Glucose 98 Calcium 7.8 L Magnesium 1.5 L 02/06/20 02/15/20 02/15/20 09:55 11:35 16:52 Troponin I 0.107 < 0.012 < 0.012 Impressions: Abdomen/Pelvis CT 02/06/20 10:15 IMPRESSION: 1. Patient is now postoperative, status post recent cholecystectomy. This likely explains minimal free air in the abdomen and mild ascites. 2. There is considerable fluid distention of the distal esophagus, stomach and proximal small bowel however. Although ileus is in the differential, appearance is highly concerning for proximal true obstruction. KUB X-Ray 02/12/20 00:00 IMPRESSION: Persistent gas-filled loops of small bowel with patchy bowel gas in the distal colon, not significantly changed. Finding may represent ileus or bowel obstruction. Clinical correlation and continued follow-up recommended. Chest X-Ray 02/15/20 00:00 IMPRESSION: Patchy bibasilar opacities that could represent atelectasis or pneumonia. Assessment and Plan - Plan Summary Summary: 55 yo man who underwent a lap aurelia at [facility] about one week prior to admission. He felt well for about a day then became anorexic with abd pain and was not eating or drinking much after. He presented to the ED with hypovolemic shock, lactic acid of 6, renal dysfunction and a CT initially suggestive of a high grade duodenal SBO with a very distended stomach. SBO seems to have resolved but hospital course has been complicated by ileus. He was decompressed with NGT, surgery was consulted, and he was managed conservatively. NGT was clamped on 02/07 and diet was advanced on to CLD, which he did not tolerate, so he was placed back on NGT with LIS on 02/09. NGT removed again on 02/10 and diet advanced to soft mechanical (which is his regular/home diet, as he can not tolerate swallowing anything else). Pre-Renal BISMARK: resolved with aggressive IVF hydration Hypokalemia and Hypomagnesemia: due to GI losses, repleted Hypovolemic Shock: Resolved. He was admitted to the ICU initially and a ggressively hydrated. Nutrition: Central line placed by Dr. Elkins on 02/10/2020. Pharmacy consulted for TPN dosing, which began on 02/09 and was discontinued on 02/13. Diarrhea: resolved. C diff negative on 02/13. Chest Pain: seems to be related to anxiety, not cardiac. VS stable during episode, which lasted about 2 hours and eventually resolved with IV Dilaudid. He had unchanged EKG, CXR and negative troponin x2. DVT ppx: Lovenox - Time Time Spent with patient: 25-34 minutes Anticipated Discharge Disposition: Home with Home Health Anticipated Discharge Timeframe: within 24 hours
[2020-02-15] MEDS: ATORVASTATIN CALCIUM 40 MG TABLET PO SCH (21:22)
[2020-02-15] MEDS: MORPHINE SULFATE SR 30 MG TABLET PO SCH (21:24)
[2020-02-15] MEDS: PRIMIDONE 250 MG TABLET PO SCH (21:24)
[2020-02-15] MEDS: DIVALPROEX SODIUM 500 MG TAB.SR.24H PO SCH (21:34)
[2020-02-16] MEDS: MORPHINE SULFATE 10 MG/5 ML ORAL SOLUTION UDCUP PO PRN (03:33)
[2020-02-16] MEDS: ONDANSETRON HCL INJ/PF 4 MG/2 ML SDV IV PRN ×2 (03:33→10:19)
[2020-02-16 05:51] LABS: ALBUMIN 2.8 g/dL (3.5-5.0); ALKALINE PHOSPHATASE 273 U/L (38-126); ANION GAP 7 (5-19); ASPARTATE AMINO TRANSFERASE 38 U/L (17-59); BILIRUBIN,DIRECT 1.1 mg/dL (0.0-0.4); BILIRUBIN,TOTAL 1.6 mg/dL (0.2-1.3); BLOOD UREA NITROGEN 14 mg/dL (7-20); CALCIUM 7.9 mg/dL (8.4-10.2); CARBON DIOXIDE 27 mmol/L (22-30); CHLORIDE 102 mmol/L (98-107); GLUCOSE 102 mg/dL (75-110); PHOSPHORUS 3.5 mg/dL (2.5-4.5); POTASSIUM 3.8 mmol/L (3.6-5.0); TOTAL PROTEIN 6.2 g/dL (6.3-8.2)
[2020-02-16 05:58] LABS: PREALBUMIN 14.4 mg/dL (17.6-36.0)
[2020-02-16] MEDS: AMANTADINE HCL 100 MG CAPSULE PO SCH (10:17)
[2020-02-16] MEDS: ENOXAPARIN SODIUM INJ 40 MG/0.4 ML DISP.SYRIN SUBCUT SCH (10:18)
[2020-02-16] MEDS: MORPHINE SULFATE SR 30 MG TABLET PO SCH (10:22)
[2020-02-16] MEDS: CHLORHEXIDINE GLUCONATE 0.12% ORAL RINSE 15 ML UDC MM SCH (11:03)
[2020-02-16] MEDS: ATENOLOL 50 MG TABLET PO SCH (11:04)
[2020-02-16 13:53] VITALS: BP 135/84
--- NOTE | 2020-02-16 17:59 | PDOC DISCHARGE SUMMARY ---
Impression - Admit/DC Date/PCP Admission Date/Primary Care Provider: 02/06/20 12:55 GIANCARLO CLAUDIO MD Discharge Date: 02/16/20 - Discharge Diagnosis (1) BISMARK (acute kidney injury) Is this a current diagnosis for this admission?: Yes (2) Adynamic ileus Is this a current diagnosis for this admission?: Yes (3) Dehydration Is this a current diagnosis for this admission?: Yes (4) Hypokalemia Is this a current diagnosis for this admission?: Yes (5) Hypovolemic shock Is this a current diagnosis for this admission?: Yes (6) Ileus following lap aurelia Is this a current diagnosis for this admission?: Yes (7) Lactic acid acidosis Is this a current diagnosis for this admission?: Yes (8) Malnutrition following gastrointestinal surgery Is this a current diagnosis for this admission?: Yes (9) Physical deconditioning Is this a current diagnosis for this admission?: Yes (10) Sinus tachycardia Is this a current diagnosis for this admission?: Yes (11) Small bowel obstruction Is this a current diagnosis for this admission?: Yes - Assessment Summary: 55 yo man who underwent a lap aurelia at [facility] about one week prior to admission. He felt well for about a day then became anorexic with abd pain and was not eating or drinking much after. He presented to the ED with hypovolemic shock, lactic acid of 6, renal dysfunction and a CT initially suggestive of a high grade duodenal SBO with a very distended stomach. SBO resolved with NGT but hospital course was complicated by subsequent development of ileus. Due to concern for malnutrition, central line placed on 02/10/2020 and he received TPN x4 days until he could tolerate his regular diet again. He was discharged home with outpatient follow up with his surgeon in 1 week, as well as home health for ongo ing PT, OT. - Additional Information Resuscitation Status: Full Code Discharge Diet: As Tolerated Discharge Activity: Activity As Tolerated Referrals: GIANCARLO CLAUDIO MD [Primary Care Provider] - 02/22/20 3:10 pm Home Medications: Amantadine HCl [Amantadine] 100 mg PO BID 02/06/20 Atenolol [Tenormin] 12.5 mg PO DAILY 02/06/20 Atorvastatin Calcium [Lipitor 80 mg Tablet] 40 mg PO QHS 02/06/20 Cetirizine HCl [Zyrtec] 10 mg PO DAILY 02/06/20 Diazepam [Diastat Acudial 20 mg/4 ml Rectal Gel] 15 mg CA PRN PRN 02/06/20 Diphenhydramine HCl [Benadryl 25 mg Capsule] 25 mg PO QIDP PRN 02/06/20 Divalproex Sodium [Depakote ER 500 mg Tab.sr] 2,000 mg PO QHS 02/06/20 Erenumab-Aooe [Aimovig Autoinjector] 140 mg SQ [id number] 02/06/20 Ergocalciferol (Vitamin D2) [Vitamin D2] 1,250 mcg PO AGARWAL@1000 02/06/20 Ferrous Gluconate 324 mg PO BID 02/06/20 Indomethacin [Indocin 25 mg Capsule] 25 mg PO TIDP PRN 02/06/20 Lisinopril [Prinivil 5 mg Tablet] 5 mg PO DAILY 02/06/20 Metformin HCl [Glucophage 500 mg Tablet] 500 mg PO BID 02/06/20 Methocarbamol [Robaxin 500 mg Tablet] 500 mg PO QHS 02/06/20 Morphine Sulfate [Ms-Contin Sr 15 mg Tablet] 15 mg PO QIDP PRN 02/06/20 Omeprazole 40 mg PO DAILYP PRN 02/06/20 Oxycodone HCl/Acetaminophen [Percocet 5-325 mg Tablet] 1 tab PO Q4HP PRN 02/06/20 Polyethylene Glycol 3350 [Miralax Powder 17 gm/Packet] 17 gm PO DAILYP PRN 02/06/20 Primidone [Mysoline 250 mg Tablet] 250 mg PO QHS 02/06/20 Prochlorperazine Maleate [Compazine 5 mg Tablet] 5 mg PO QIDP PRN 02/06/20 Sildenafil Citrate 100 mg PO DAILYP PRN 02/06/20 Urea [Carmol 20% Cream 85 gm] 1 applic TP BIDP PRN 02/06/20 History of Present Illiness History of Present Illness: DU VELASQUEZ JR is a 55 year old male Physical Exam Vital Signs: Temp Pulse Resp BP Pulse Ox 99.0 F 98 16 135/84 H 95 02/16/20 13:48 02/16/20 13:48 02/16/20 13:48 02/16/20 13:48 02/16/20 13:48 Intake & Output 02/15/20 02/16/20 02/17/20 06:59 06:59 06:59 Intake Total 1056 1808 Output Total 1999 1000 Balance -944 808 Weight 84 kg 84 kg Results Laboratory Results: WBC 7.6 10^3/uL (4.0-10.5) 02/15/20 06:15 RBC 2.90 10^6/uL (4.35-5.55) L 02/15/20 06:15 Hgb 8.4 g/dL (13.5-17.0) L 02/15/20 06:15 Hct 24.6 % (37.9-51.0) L 02/15/20 06:15 MCV 85 fl (80-97) 02/15/20 06:15 MCH 29.1 pg (27.0-33.4) 02/15/20 06:15 MCHC 34.3 g/dL (32.0-36.0) 02/15/20 06:15 RDW 15.6 % (11.5-14.0) H 02/15/20 06:15 Plt Count 364 10^3/uL (150-450) 02/15/20 06:15 Lymph % (Auto) 5.6 % (13-45) L 02/10/20 09:47 [place] % (Auto) 3.7 % (3-13) 02/10/20 09:47 Eos % (Auto) 0.5 % (0-6) 02/10/20 09:47 Baso % (Auto) 0.1 % (0-2) 02/10/20 09:47 Absolute Neuts (auto) 8.7 10^3/uL (1.7-8.2) H 02/10/20 09:47 Absolute Lymphs (auto) 0.5 10^3/uL (0.5-4.7) 02/10/20 09:47 Absolute Monos (auto) 0.4 10^3/uL (0.1-1.4) 02/10/20 09:47 Absolute Eos (auto) 0.1 10^3/uL (0.0-0.6) 02/10/20 09:47 Absolute Basos (auto) 0.0 10^3/uL (0.0-0.2) 02/10/20 09:47 Total Counted 100 02/07/20 03:57 Seg Neutrophils % 90.1 % (42-78) H 02/10/20 09:47 Seg Neuts % (Manual) 44 % (42-78) 02/07/20 03:57 Band Neutrophils % 6 % (3-5) H 02/07/20 03:57 Lymphocytes % (Manual) 40 % (13-45) 02/07/20 03:57 Monocytes % (Manual) 9 % (3-13) 02/07/20 03:57 Eosinophils % (Manual) 1 % (0-6) 02/07/20 03:57 Basophils % (Manual) 0 % (0-2) 02/07/20 03:57 Abs Neuts (Manual) 3.0 10^3/uL (1.7-8.2) 02/07/20 03:57 Abs Lymphs (Manual) 2.4 10^3/uL (0.5-4.7) 02/07/20 03:57 Abs Monocytes (Manual) 0.5 10^3/uL (0.1-1.4) 02/07/20 03:57 Absolute Eos (Manual) 0.1 10^3/uL (0.0-0.6) 02/07/20 03:57 Abs Basophils (Manual) 0.0 10^3/uL (0.0-0.2) 02/07/20 03:57 Toxic Granulation 1+ 02/07/20 03:57 Clumped Platelets PRESENT 02/06/20 22:46 Platelet Comment ADEQUATE 02/07/20 03:57 Poikilocytosis SLIGHT 02/07/20 03:57 Anisocytosis SLIGHT 02/07/20 03:57 Tear Drop Cells SLIGHT 02/07/20 03:57 Ovalocytes SLIGHT 02/06/20 22:46 [place] Cells SLIGHT 02/07/20 03:57 PT 14.8 SEC (11.4-15.4) D 02/13/20 09:07 INR 1.14 02/13/20 09:07 INR (Anticoag Therapy) Cancelled 02/13/20 06:40 VBG pH 7.37 (7.30-7.42) 02/06/20 09:55 VBG pCO2 47.0 mmHg (35-63) 02/06/20 09:55 VBG HCO3 26.3 mmol/L (20-32) 02/06/20 09:55 VBG Base Excess 0.5 mmol/L 02/06/20 09:55 Sodium 135.8 mmol/L (137-145) L 02/16/20 05:00 Potassium 3.8 mmol/L (3.6-5.0) 02/16/20 05:00 Chloride 102 mmol/L (98-107) 02/16/20 05:00 Carbon Dioxide 27 mmol/L (22-30) 02/16/20 05:00 Anion Gap 7 (5-19) 02/16/20 05:00 BUN 14 mg/dL (7-20) 02/16/20 05:00 Creatinine 0.69 mg/dL (0.52-1.25) 02/16/20 05:00 Est GFR ( Amer) > 60 (>60) 02/16/20 05:00 Est GFR (Non-Af Amer) Cancelled 02/09/20 15:13 Est GFR (MDRD) Non-Af > 60 (>60) 02/16/20 05:00 Glucose 102 mg/dL (75-110) 02/16/20 05:00 POC Glucose 105 mg/dL (70-110) 02/16/20 00:12 Lactic Acid 1.4 mmol/L (0.7-2.1) 02/09/20 15:13 Calcium 7.9 mg/dL (8.4-10.2) L 02/16/20 05:00 Phosphorus 3.5 mg/dL (2.5-4.5) 02/16/20 05:00 Magnesium 1.5 mg/dL (1.6-2.3) L 02/15/20 06:15 Total Bilirubin 1.6 mg/dL (0.2-1.3) H 02/16/20 05:00 Direct Bilirubin 1.1 mg/dL (0.0-0.4) H 02/16/20 05:00 Neonat Total Bilirubin Not Reportable 02/16/20 05:00 Neonat Direct Bilirubin Not Reportable 02/16/20 05:00 Neonat Indirect Bili Not Reportable 02/16/20 05:00 AST 38 U/L (17-59) 02/16/20 05:00 ALT 49 U/L (<50) 02/16/20 05:00 Alkaline Phosphatase 273 U/L (38-126) H 02/16/20 05:00 Ammonia < 8.7 umol/L (9-33) L 02/06/20 22:46 Troponin I < 0.012 ng/mL 02/15/20 16:52 Total Protein 6.2 g/dL (6.3-8.2) L 02/16/20 05:00 Albumin 2.8 g/dL (3.5-5.0) L 02/16/20 05:00 Prealbumin 14.4 mg/dL (17.6-36.0) L 02/16/20 05:00 Triglycerides 117 mg/dL (<150) 02/13/20 19:50 Cholesterol 80.86 mg/dL (0-200) 02/13/20 19:50 LDL Cholesterol Direct 42 mg/dL (<100) 02/13/20 19:50 VLDL Cholesterol 23.0 mg/dL (10-31) 02/13/20 19:50 HDL Cholesterol 17 mg/dL (>40) L 02/13/20 19:50 EGFR Cancelled 02/09/20 15:13 Random Cortisol 49.00 ug/dL (None Established) 02/06/20 22:46 Urine Color MILAGROS 02/06/20 11:43 Urine Appearance TURBID 02/06/20 11:43 Urine pH 5.0 (5.0-9.0) 02/06/20 11:43 Ur Specific [place] 1.026 02/06/20 11:43 Urine Protein >=500 mg/dL (NEGATIVE) H 02/06/20 11:43 Urine Glucose (UA) NEGATIVE mg/dL (NEGATIVE) 02/06/20 11:43 Urine Ketones TRACE mg/dL (NEGATIVE) H 02/06/20 11:43 Urine Blood MODERATE (NEGATIVE) H 02/06/20 11:43 Urine Nitrite (Reflex) NEGATIVE (NEGATIVE) 02/06/20 11:43 Urine Bilirubin SMALL (NEGATIVE) H 02/06/20 11:43 Urine Urobilinogen 4.0 mg/dL (<2.0) H 02/06/20 11:43 Leukocyte Esterase Rfl NEGATIVE (NEGATIVE) 02/06/20 11:43 Urine RBC (Auto) 21 /HPF 02/06/20 11:43 Urine Bacteria (Auto) 1+ /HPF 02/06/20 11:43 Urine WBC (Reflex) 8 /HPF 02/06/20 11:43 Squamous Epi Cells Auto 8 /HPF 02/06/20 11:43 Amorphous Sediment Auto TRACE /HPF 02/06/20 11:43 Urine Mucus (Auto) FEW /LPF 02/06/20 11:43 Urine Ascorbic Acid NEGATIVE (NEGATIVE) 02/06/20 11:43 Stl C. Difficile GDH Ag NEGATIVE (NEGATIVE) 02/14/20 15:51 Stl C.difficile Tox A&B NEGATIVE (NEGATIVE) 02/14/20 15:51 Blood Type A POSITIVE 02/06/20 10:18 Blood Type Confirm A POSITIVE 02/06/20 12:22 Antibody Screen NEGATIVE 02/06/20 10:18 Crossmatch See Detail 02/06/20 10:18 02/06/20 02/15/20 02/15/20 09:55 11:35 16:52 Troponin I 0.107 < 0.012 < 0.012 Impressions: Chest X-Ray 02/06/20 09:46 IMPRESSION: No focal airspace disease or other evidence of acute intrathoracic process. Abdomen/Pelvis CT 02/06/20 10:15 IMPRESSION: 1. Patient is now postoperative, status post recent cholecystectomy. This likely explains minimal free air in the abdomen and mild ascites. 2. There is considerable fluid distention of the distal esophagus, stomach and proximal small bowel however. Although ileus is in the differential, appearance is highly concerning for proximal true obstruction. KUB X-Ray 02/06/20 12:24 IMPRESSION: NG tube as described. Chest X-Ray 02/09/20 00:00 IMPRESSION: Small pleural effusions. KUB X-Ray 02/09/20 00:00 IMPRESSION: NO RADIOGRAPHIC EVIDENCE FOR ACUTE ABDOMINAL DISEASE. Chest X-Ray 02/10/20 11:32 IMPRESSION: 1. SATISFACTORY POSITION OF THE CENTRAL LINE. NO PNEUMOTHORAX. 2. PATCHY DENSITY IN THE LEFT LUNG BASE AND SMALL PLEURAL EFFUSIONS, UNCHANGED. KUB X-Ray 02/12/20 00:00 IMPRESSION: Persistent gas-filled loops of small bowel with patchy bowel gas in the distal colon, not significantly changed. Finding may represent ileus or bowel obstruction. Clinical correlation and continued follow-up recommended. Chest X-Ray 02/15/20 00:00 IMPRESSION: Patchy bibasilar opacities that could represent atelectasis or pneumonia. Stroke Is this a Stroke Patient?: No Acute Heart Failure Is this a Heart Failure Patient?: No
== END 2020-02-16 14:47 | disposition home health service (06) | DRG 388 ==
LOC: ER 09:44 → EH 12:55 → ICU 14:25 → 5 02-09 01:20
PROVIDERS: ADMIT Anesthesiology; ATTEND Hospitalist
PROC: 0D9670Z Drainage of Stomach with Drainage Device, Via Natural or Artificial Opening (ICD-10-PCS; 2020-02-06)
PROC: 02HV33Z Insertion of Infusion Device into Superior Vena Cava, Percutaneous Approach (ICD-10-PCS; principal; 2020-02-10)
PROC: B548ZZA Ultrasonography of Superior Vena Cava, Guidance (ICD-10-PCS; 2020-02-10)
PROC: 3E0436Z Introduction of Nutritional Substance into Central Vein, Percutaneous Approach (ICD-10-PCS; 2020-02-10)
DX: K91.30 Postprocedural intestinal obstruction, unspecified as to partial versus complete (principal); R57.1 Hypovolemic shock; N17.9 Acute kidney failure, unspecified; E87.2 Acidosis; K91.2 Postsurgical malabsorption, not elsewhere classified; E86.0 Dehydration; E78.5 Hyperlipidemia, unspecified; K56.0 Paralytic ileus; I10 Essential (primary) hypertension; E11.9 Type 2 diabetes mellitus without complications; M19.90 Unspecified osteoarthritis, unspecified site; F17.200 Nicotine dependence, unspecified, uncomplicated; Z88.0 Allergy status to penicillin; Z91.018 Allergy to other foods; Z90.49 Acquired absence of other specified parts of digestive tract; R00.0 Tachycardia, unspecified
CPT/HCPCS: 36415; 71045; 74018; 74176; 80048; 80053; 80061; 80069; 81001; 82140; 82533; 82803; 82962; 83605; 83735; 84100; 84134; 84478; 84484; 85025; 85027; 85610; 86850; 86900; 86901; 86920; 87040; 87070; 87324; 87449; 93005; 93010; 96361; 96374; 99221; 99291; C9113; J1170; J1200; J1642; J1650; J1940; J2405; J2765; J3475; J3480; J3490; J7030; J7120